=== PATIENT | female | born 1955 | race Caucasian/White ===

== ENCOUNTER → 2018-02-27 12:31 | Outpatient (CLI) | payer OTHER, SELFPAY ==
--- NOTE | 2018-02-27 | DI.US.S_ITS ---
PROCEDURE: US PELVIC COMPLETE INDICATIONS: POST MENOPAUSAL BLEEDING TECHNIQUE: Real-time scanning was performed of the pelvic organs, with image documentation. Additional endovaginal scanning was necessary due to incomplete visualization of the adnexal and endometrial structures by transabdominal scanning. COMPARISON: None. FINDINGS: Transabdominal scanning: Limited scanning through the kidneys shows no hydronephrosis. No pathologic free abdominal or pelvic fluid. Endovaginal scanning: Uterus: Uterus is normal in size at 3.4 x 3.7 x 5.3 cm. The endometrium measures 2.8 mm in combined thickness. There is a right anterior intramural fibroid measuring 15 x 16 x 16 mm. There is a left posterior subserosal fibroid measuring 14 x 19 x 20 mm. Ovaries: Ovaries appear normal measuring 6 x 8 x 12 mm right and 6 x 6 x 15 mm left. IMPRESSION: 1. Fibroid uterus with fibroids measuring 2 cm or smaller in size and not in submucosal locations. Normal endometrial thickness. No source of vaginal bleeding seen. 2. Normal atrophic ovaries Dictated by: Chau Bonner M.D. on 02/27/2018 at 14:19 Approved by: Chau Bonner M.D. on 02/27/2018 at 14:22
== END ==
PROVIDERS: Visit Provider Physician Assistant Medical
DX: D25.9 Leiomyoma of uterus, unspecified (principal)
CPT/HCPCS: 76830; 76856

== ENCOUNTER → 2021-09-12 12:33 | Outpatient (CLI) | payer BC, SELFPAY ==
--- NOTE | 2021-09-12 12:38 | DI.RAD.S_ITS ---
PROCEDURE: FL BARIUM SWALLOW W AIR COMPARISON: None. INDICATIONS: Epigastric pain FINDINGS: Esophagus follows a normal course. Esophageal contours are normal. Esophageal mucosa is normal in appearance with no mucosal mass, ulceration or irregularity. No hiatal hernia noted. Mild gastroesophageal reflux occurred without provocative maneuvers. There is minimal distal esophageal dysmotility. No esophageal stricture or diverticulum. 13 millimeter barium tablet readily passed from the oral cavity to the stomach. IMPRESSION: 1. Mild gastroesophageal reflux. 2. Minimal distal esophageal dysmotility. Dictated by: Reny Diego MD, PhD on 09/12/2021 at 16:22 Approved by: Reny Diego MD, PhD on 09/12/2021 at 16:24
== END ==
PROVIDERS: PCP Internal Medicine; Referring Provider Internal Medicine; Visit Provider Internal Medicine
DX: K22.4 Dyskinesia of esophagus (principal); K21.9 Gastro-esophageal reflux disease without esophagitis; R10.13 Epigastric pain
CPT/HCPCS: 74221

== ENCOUNTER 2022-01-29 07:42 | Day surgery (SDC) | payer BC, SELFPAY ==
--- NOTE | 2022-01-29 | PATH_ITS ---
[facility] Accession Number: [id number] . 01 Material submitted: . PART A: duodenum - DUODNEUM PART B: stomach - ANTRUM PART C: esophagus, E-G Junction - GEJ . 01 Diagnosis: A. Duodenum, Biopsy: Duodenal mucosa with no diagnostic abnormality. Negative for active inflammation, features of sprue, dysplasia, or malignancy. . B. Stomach, Antrum, Biopsy: Antral mucosa with mild chronic gastritis. Negative for Helicobacter by immunohistochemistry. Negative for intestinal metaplasia. Negative for dysplasia and malignancy. . C. Gastroesophageal Junction, Biopsy: Squamous epithelium with no diagnostic abnormality. Intraepithelial eosinophils are not increased. Negative for dysplasia and malignancy. MRV 02/02/2022 1310 Local . 01 Electronically signed: . Audelia Mcdaniel MD, Pathologist NPI- [id number] . 01 Gross description: . Part A: DUODNEUM: Received in formalin are 2 fragment(s) of marshall, soft tissue measuring 0.3 x 0.2 x 0.2 cm to 0.2 x 0.1 x 0.1 cm submitted entirely in 1 cassette(s) Part B: ANTRUM: Received in formalin is 1 fragment(s) of marshall, soft tissue measuring 0.3 x 0.1 x 0.1 cm submitted entirely in 1 cassette(s) Part C: GEJ: Received in formalin is 1 fragment(s) of marshall, soft tissue measuring 0.1 x 0.1 x 0.1 cm submitted entirely in 1 cassette(s) /CPE 01/30/2022 0832 Local . 01 Microscopic: . B. An immunohistochemical stain was performed to evaluate for Helicobacter organisms and is negative. The control stain showed appropriate reactivity. . * This test was developed and its performance characteristics determined by [employer]. It has not been cleared or approved by the U.[place]. Food and Drug Administration. The FDA has determined that such clearance or approval is not necessary. This test is used for clinical purposes. It should not be regarded as investigational or for research. . . . . . 01 Pathologist provided ICD-10: R13.12 . 01 CPT . 363475, 908935, 440030, R54291 Specimen Comment: A courtesy copy of this report has been sent to [phone] Performed at: [facility] [address] [place] [id number] MD Pilo Dunbar MD Phone: [phone]
[2022-01-29 08:06] LABS: COVID19 -Nasal RAPID Negative (Negative)
[2022-01-29 08:50] VITALS: BP 143/78; PULSE 59; RESP 15; TEMP 37.1; O2SAT 99
[2022-01-29] MEDS: SODIUM CHLORIDE 0.9% 1,000 ML 100 ML IV (08:59)
--- NOTE | 2022-01-29 09:09 | PM.HP.1 ---
History of Present Illness History of Present Illness Date Patient Seen: 01/29/22 Time Patient Seen: 09:09 Chief complaint: SDC Narrative: I reviewed my office note from December 05, 2021. No significant changes. Patient History Family & Social History Social History: household members spouse Tobacco & Substance use: Smoking Status Never smoker alcohol intake never Substance Use Type does not use Meds Home Medications and Allergies Home Medications Medication Instructions Recorded Confirmed Type metoprolol succinate 25 mg 25 mg PO BID 01/26/22 01/29/22 History tablet,extended release 24 hr simvastatin 10 mg tablet 10 mg PO BEDTIME 01/26/22 01/29/22 History Allergies Allergy/AdvReac Type Severity Reaction Status Date / Time No Known Drug Allergies Allergy Verified 01/29/22 08:51 Review of Systems Review of Systems ROS: Yes All systems reviewed with the patient and are negative except as otherwise documented Exam Vital Signs (past 8 hours): - 01/29/22 08:50 Temperature 98.7 F Pulse Rate 59 L Respiratory Rate 15 Blood Pressure 143/78 H Pulse Oximetry 99 Oxygen Delivery Method Room Air Const General: cooperative and comfortable Orientation: alert HENNC Head: normocephalic Ears: external ears normal Nose: external nose normal Face and sinus: normal facial exam Mouth: oral mucosae normal Eyes General: appearance normal, both eyes and all related structures Neck Neck: normal visual inspection Chest Chest: normal inspection of the chest Resp Effort & Inspection: normal respiratory effort Cardio Rate: regular rate GI Inspection: normal to inspection Skin General: no rashes or lesions noted and No jaundice Neuro General: patient alert and moves all extremities Cognition: normal cognition Speech: speech normal Extrem General: no pedal edema Psych Appearance: grossly normal Objective Labs Labs: Laboratory Results - last 24 hr 01/29/22 07:49 SARS-CoV-2 (PCR) Negative Assessment & Plan Assessment & Plan narrative: 66-year-old female with both oropharyngeal and esophageal dysphagia. Diagnostic EGD is pursued today. Time Spent With Patient Critical Care time: I spent a total of [] minutes of critical care time on this patient's care today; this time is exclusive of procedural time.
--- NOTE | 2022-01-29 09:10 | PM.PREOP ---
Pre-operative Note COVID-19 COVID-19 status: Negative Result date/Date tested (Pos, Neg/Pending): 01/29/22 Criteria for continued procedure: Possibility delay results in more complex future surgery or treatment Interval Note History & Physical reviewed/Exam performed by Physician: Yes Changes to H&P: No ASA Class (for procedural sedation): II
--- NOTE | 2022-01-29 09:53 | PM.OP.EGD ---
Operative Date/Time/Diagnoses Date of procedure: 01/29/22 Time of procedure: 09:53 Pre-op diagnosis: Dysphagia Post-op diagnosis: same Procedure & Clinicians Study performed: EGD with biopsies Same procedure as scheduled: Yes Indications: Dysphagia Surgeon: Ga Bridges Procedure Notes SCOAP/Timeout: Done Procedure in detail: After the risks and benefits were explained, written and verbal informed consent was obtained. The patient was brought into the procedure room and placed into the left lateral decubitus position. Please see nurse curtain fitter notes for sedation details. The scope was introduced into the mouth through the bite block and advanced under direct visualization to the 2nd portion of the duodenum. The scope was slowly withdrawn carefully examining the mucosa for any defects or lesions. Retroflexed views were accomplished in the stomach. The stomach was decompressed, the scope was then removed from the patient who tolerated the procedure well. Sedation minutes: 11 Complications: none Impression: 1. Duodenum: There was some subtle scant erosive change scattered in the 2nd portion. These areas were targeted for biopsy. Otherwise no significant pathology appreciated from the bulb through into the 2nd portion. 2. Stomach: No gastric outlet obstruction no ulcers no mass lesions no strictures. Mild diffuse erythema was appreciated in the antral region. This area was targeted for biopsy for exclusion of H pylori I. Retroflexed views of the LES were unremarkable. 3. Esophagus: The squamocolumnar junction correlated with the top of the gastric folds. GE junction was at approximately 44 cm from the incisors. No strictures no obvious rings. There was subtle inflammation noted at the Z-line. This area was targeted for a biopsy x1 for histologic characterization. The remainder of the esophagus was within normal limits. Endoscopic diagnosis 1. Subtle duodenal erosions 2. Mild gastropathy 3. Mild esophagitis at the Z-line Post-procedure Plan for aftercare: 1. Await histopathology. 2. Initiation of once daily 20 mg [id number] famotidine. 3. Speech pathology assessment for the oropharyngeal component of swallowing dysfunction. Disposition: PACU
[2022-01-29 09:57] VITALS: BP 105/58; PULSE 55; RESP 13; TEMP 36.2; O2SAT 98
[2022-01-29 10:01] VITALS: BP 108/65; PULSE 60; RESP 16; O2SAT 98
[2022-01-29 10:09] VITALS: BP 117/65; PULSE 51; RESP 16; O2SAT 99
[2022-01-29 10:19] VITALS: BP 120/70; PULSE 80; RESP 16; TEMP 36.9; O2SAT 98
== END 2022-01-29 10:31 | disposition home or self-care (01) ==
PROVIDERS: PCP Internal Medicine; Referring Provider Internal Medicine Gastroenterology; Visit Provider Internal Medicine Gastroenterology
PROC: 0DJ08ZZ Inspection of Upper Intestinal Tract, Via Natural or Artificial Opening Endoscopic (ICD-10-PCS; CPT 43235; principal; 2022-01-29 09:30)
DX: R13.10 Dysphagia, unspecified (principal); R05.3 Chronic cough; K31.9 Disease of stomach and duodenum, unspecified; R73.03 Prediabetes; K29.50 Unspecified chronic gastritis without bleeding
CPT/HCPCS: 43239; 87635; C9803; J2704

== ENCOUNTER 2023-02-24 18:21 | Inpatient (IN) | payer OTHER, SELFPAY ==
[2023-02-24] VITALS (15 sets, daily range): BP systolic 108–139; BP diastolic 64–86; PULSE 72–131; RESP 16–31; TEMP 36.2–37.2; O2SAT 96–98; BMI 21.7; BMI 21.8
--- NOTE | 2023-02-24 18:28 | DI.RAD.S_ITS ---
PROCEDURE: XR CHEST 1V INDICATIONS: chest pain TECHNIQUE: One view of the chest was acquired. COMPARISON: None. FINDINGS: Surgical changes and devices: None. Lungs and pleura: Patchy right basilar opacities which may represent atelectasis versus early developing airspace disease. No definite consolidation seen. No pneumothorax or pleural effusion. . Mediastinum: Mediastinal contours appear normal. Heart size is normal. Bones and chest wall: No suspicious bony lesions. Overlying soft tissues appear unremarkable. IMPRESSION: Patchy right basilar opacities which may represent atelectasis versus early airspace disease/pneumonia. Recommend follow up chest radiograph 4-6 weeks after treatment to document resolution of findings and/or return to baseline examination. Dictated by: Vikas Rogel M.D. on 02/24/2023 at 19:03 Approved by: Vikas Rogel M.D. on 02/24/2023 at 19:04
[2023-02-24 18:59] LABS: Add Manual Diff / Slide Review NO; Basophils Absolute Auto 0 /uL (0-100); Basophils Percent Auto 0.8 % (0-2); Eosinophils Absolute Auto 100 /uL (0-450); Eosinophils Percent Auto 3.4 % (2-4); Hematocrit 47.6 % (36-46); Hemoglobin 16.1 g/dL (12.0-16.0); Lymphocytes Absolute Auto 2000 /uL (1100-4500); Lymphocytes Percent Auto 44.4 % (25-40); Mean Corpuscular HGB Conc 33.8 % (30-36); Mean Corpuscular Volume 85.8 fL (80-100); Monocytes Absolute Auto 800 /uL (0-900); Neutrophils Absolute Auto 1500 /uL (1500-7000); Neutrophils Percent Auto 33.4 % (50-75); Platelet Count 199 X10^3/uL (150-400); Red Blood Cell Count 5.55 X10^6/uL (4.0-5.2); Red Cell Distribution Width 13.9 % (11.6-14.8); White Blood Cell Count 4.4 X10^3/uL (4.5-11.0)
[2023-02-24 19:12] LABS: INR 1.2 (0.9-1.3); Prothrombin Time 14.1 SECONDS (10.1-12.7)
[2023-02-24 19:15] LABS: PTT Partial Thromboplastin Tim 43 SECONDS (26-36)
[2023-02-24 19:17] LABS: Alanine Aminotransferase 26 IU/L (<35); Albumin 4.1 g/dL (3.5-5.0); Albumin Globulin Ratio 1.1 (1.0-2.8); Alkaline Phosphatase 81 U/L (38-126); Aspartate Aminotransferase 39 IU/L (14-36); BUN Creatinine Ratio 11.5 (6-22); Bilirubin Total 0.4 mg/dL (0.2-1.3); Blood Urea Nitrogen 16 mg/dL (7-17); Calcium 9.4 mg/dL (8.4-10.2); Carbon Dioxide 28 mmol/L (22-32); Chloride 100 mmol/L (98-107); Creatine Kinase 104 U/L (30-135); Estimated Glomerular Filt Rate 42 mL/min (>60); Globulin 3.8 g/dL (1.7-4.1); Glucose 122 mg/dL (80-110); HEMOLYSIS 17 (0-50); Lipase 58 U/L (23-300); Potassium 4.3 mmol/L (3.4-5.1); Sodium 136 mmol/L (137-145); Total Protein 7.9 g/dL (6.3-8.2)
[2023-02-24 19:35] LABS: Troponin I 0.691 ng/mL (0.01-0.034)
--- NOTE | 2023-02-24 19:42 | ED_ITS ---
HPI - Arrhythmia/Palpitations General Chief Complaint: Arrhythmia/Palpitations Stated Complaint: High heartrate, says NATASHA de souza Time Seen by Provider: 02/24/23 18:41 History of Present Illness HPI narrative: 67-year-old woman with a history of hypertension, hyperlipidemia paroxysmal atri al fibrillation last episode approximately 5 years ago currently anticoagulated on Pradaxa who comes in complaining of persistent cough and atrial fibrillation. She notes that she is had a cough with upper respiratory type symptoms since February 20. At about 430 in the afternoon on February 22 she noted that she went into atrial fibrillation. She went to would be emergency department and was evaluated at that time. It sounds like she was given multiple medications in her heart rate was lowered and it was determined that it was safe for her to be discharged home. Was not determined that she had any type of bacterial infection and antibiotics were not given. She has been on metoprolol for a number of years and was told to continue this. She was instructed that if her systolic blood pressure was lower than 110 she should not take the metoprolol. This morning she noticed that her systolic blood pressure was 108 and she did not take her metoprolol. She can feel the palpitations but she is having no actual chest pain, orthopnea or exertional dyspnea she notes that she has been increasingly weak over the last couple of days and her actually has to help her to the bathroom due to global weakness. She is noted no headaches, no recent fevers in the last 48 hours. She is not vomiting, there is no lower extremity edema. She comes in today for further evaluation Related Data Home Medications Medication Instructions Recorded Confirmed metoprolol succinate 25 mg 50 mg PO BID 01/26/22 02/25/23 tablet,extended release 24 hr simvastatin 10 mg tablet 20 mg PO BEDTIME 01/26/22 02/25/23 ascorbic acid (vitamin C) 1,000 mg 1 g PO DAILY 02/25/23 02/25/23 capsule azelastine 0.05 % eye drops 1 drp ophthalmic (eye) DAILY PRN 02/25/23 02/25/23 Allergy Symptoms benzonatate 100 mg capsule 100 mg PO TID PRN Cough 02/25/23 02/25/23 calcium 187.5 mg capsule 1 mg PO 02/25/23 coQ10 (ubiquinol) 200 mg capsule 200 mg PO DAILY 02/25/23 02/25/23 codeine 10 mg-guaifenesin 100 mg/5 5 ml PO Q8H PRN Cough 02/25/23 02/25/23 mL oral liquid dabigatran etexilate 150 mg 150 mg PO BID 02/25/23 02/25/23 capsule (Pradaxa) krill oil 500 mg capsule 500 mg PO DAILY 02/25/23 02/25/23 lutein 20 mg-zeaxanthin 4 mg 1 cap PO DAILY 02/25/23 02/25/23 capsule methylsulfonylmethane 1,000 1,000 mg PO DAILY 02/25/23 02/25/23 mg/gram (scoop) oral powder potassium citrate 99 mg capsule 99 mg PO DAILY 02/25/23 02/25/23 vitamin B complex 1 cap PO Q2D 02/25/23 02/25/23 vitamin E 400 unit tablet 400 unit PO DAILY 02/25/23 02/25/23 vitamin K2 100 mcg capsule 100 mcg PO DAILY 02/25/23 02/25/23 white petrolatum-mineral oil 94 EYE-BOTH BEDTIME 02/25/23 %-3 % eye ointment Allergies Allergy/AdvReac Type Severity Reaction Status Date / Time No Known Drug Allergies Allergy Verified 01/29/22 08:51 Review of Systems Review of Systems Narrative: Pertinent positive and negative findings as per HPI Patient History Medical History (Updated 02/25/23 @ 00:12 by TAMAR Matson-IMANI) Essential hypertension Hyperlipidemia Paroxysmal atrial fibrillation Surgical History (Updated 02/25/23 @ 00:12 by TAMAR Matson-IMANI) History of tubal ligation Family History (Updated 02/25/23 @ 00:13 by TAMAR Matson-IMANI) Father Heart attack Mother Cancer Social History household members: spouse Smoking Status: Never smoker alcohol intake: former Smoking Status: Never smoker Substance Use Type: does not use Exam Initial Vital Signs Initial Vital Signs: Vital Signs Temperature 97.2 F L 02/24/23 18:24 Pulse Rate 121 H 02/24/23 18:24 Respiratory Rate 16 02/24/23 18:24 Blood Pressure 132/76 02/24/23 18:24 Pulse Oximetry 97 02/24/23 18:24 Oxygen Delivery Method Room Air 02/24/23 18:24 General: Fatigued appearing but in no acute distress. Able to give a complete and coherent history. Well-nourished well-developed HEENT: Moist mucous membranes, normal sclera with reactive pupils, Neck: No JVD, supple Respiratory: Lungs are clear to auscultation, no wheezing no rales no rhonchi. Full and symmetrical air movement Cardiac: Rapid and irregular but no murmurs no bruits Abdomen: Soft, nontender, good bowel tones, no flank pain Skin: Warm and dry, no rashes Neurologic: Grossly neurologically intact with no obvious asymmetries or abnormalities Extremities: No trauma, well perfused, no lower extremity edema Psych: Cooperative, appropriate insight and affect Course Orders Ordered: ED Orders 02/24/23 22:17 EKG-12 Lead Stat 02/24/23 22:28 PTT Partial Thromboplastin Garfield Q6H 02/24/23 22:34 RT Consult Eval and Treat PRN 02/24/23 22:35 Sputum Culture Urgent 02/24/23 22:39 EC echo doppler complete Urgent Education, smoking cessation ONGOING 02/24/23 22:45 Consult to Dietitian, Adult Routine Consult to Occupational Therapy Evaluate & Treat Consult to Physical Therapy Evaluate & Treat 02/25/23 04:13 Basic Metabolic Panel DAILY Complete Blood Count AUTO DIFF DAILY Lipid Panel Routine Magnesium Routine PTT Partial Thromboplastin [place]field Q6H 02/25/23 10:15 PTT Partial Thromboplastin [place]field Q6H 02/25/23 16:15 PTT Partial Thromboplastin [place]field Q6H 02/26/23 05:00 Basic Metabolic Panel DAILY Complete Blood Count AUTO DIFF DAILY 02/27/23 05:00 Basic Metabolic Panel DAILY Complete Blood Count AUTO DIFF DAILY Acetaminophen (Acetaminophen 325 Mg Tablet) 650 mg PO Q6H PRN PRN Reason: Fever/Mild Pain (1-3) Hydrocodone Bitart/Acetaminophen (Hydrocodone/Acet 5/325 Tablet) 1 tab PO Q4H PRN PRN Reason: Pain, Moderate (4-10) Al Hydrox/Mg Hydrox/Simethicone (Mag Hydrox/Alum/Simeth 30 Ml Udc) 30 ml PO Q6HR PRN PRN Reason: Dyspepsia Amiodarone HCl (Amiodarone 200 Mg Tablet) 200 mg PO BIDWM ANTONY Stop: 03/04/23 07:59 Atorvastatin Calcium (Atorvastatin 20 Mg Tablet) 10 mg PO BEDTIME ANTONY Benzonatate (Benzonatate 100 Mg Capsule) 100 mg PO TID PRN PRN Reason: Cough Last Admin: 02/25/23 00:52 Dose: 100 mg Documented By: DAVE Calcium Carbonate (Calcium Carbonate 500 Mg Tab) 1,000 mg PO Q4HR PRN PRN Reason: Dyspepsia Guaifenesin/Codeine Phosphate (Codeine/Guaifenesin Liquid 5ml Udc) 5 ml PO Q6H PRN PRN Reason: Cough Last Admin: 02/25/23 00:52 Dose: 5 ml Documented By: DAVE Heparin Sodium/Dextrose (Heparin Drip) 25,000 unit in 500 mls @ 16.003 mls/hr IV CONT ANTONY; Protocol Last Admin: 02/24/23 22:17 Dose: 12 units/kg/hr, 16.003 mls/hr Documented By: Co-signed By: EMMA Sodium Chloride (Normal Saline 0.9%) 1,000 mls @ 80 mls/hr IV CONT ANTONY Last Admin: 02/24/23 23:53 Dose: 80 mls/hr Documented By: DAVE Ceftriaxone Sodium 1,000 mg/ (Sodium Chloride) 100 mls @ 200 mls/hr IV Q24H ANTONY Naloxone HCl (Naloxone 0.4 Mg/Ml Vial) 0.2 mg IV Q2MIN PRN PRN Reason: Opiate Reversal Discontinued Medications Heparin Sodium (Porcine) (Heparin 5,000 Unit/Ml Vial) 4,000 unit IV NOW ONE Stop: 02/24/23 22:04 Last Admin: 02/24/23 22:22 Dose: 4,000 unit Documented By: Amiodarone HCl/Dextrose (Nexterone) 150 mg in 100 mls @ 600 mls/hr IV NOW ONE; Protocol Stop: 02/24/23 20:06 Last Infusion: 02/24/23 21:00 Dose: 0 mls/hr Documented By: Admin: 02/24/23 20:41 Dose: 600 mls/hr Documented By: Sodium Chloride (Normal Saline 0.9%) 1,000 mls @ 1,000 mls/hr IV BOLUS ONE Stop: 02/24/23 20:56 Last Infusion: 02/24/23 21:08 Dose: 0 mls/hr Documented By: Admin: 02/24/23 20:27 Dose: 1,000 mls/hr Documented By: Sodium Chloride (Normal Saline 0.9%) 1,000 mls @ 1,000 mls/hr IV BOLUS ONE Stop: 02/24/23 22:26 Last Infusion: 02/24/23 22:11 Dose: 0 mls/hr Documented By: Admin: 02/24/23 21:28 Dose: 1,000 mls/hr Documented By: EMMA Ceftriaxone Sodium 2,000 mg/ (Sodium Chloride) 100 mls @ 200 mls/hr IV NOW ONE Stop: 02/24/23 22:14 Last Admin: 02/25/23 01:20 Dose: Not Given Documented By: DAVE Azithromycin 500 mg/ Dextrose 250 mls @ 250 mls/hr IV NOW ONE Stop: 02/24/23 22:14 Last Admin: 02/25/23 01:20 Dose: Not Given Documented By: DAVE Levofloxacin (Levaquin) 750 mg in 150 mls @ 100 mls/hr IV Q24H ANTONY Stop: 03/02/23 21:59 Vital Signs Vital signs: Vital Signs - 8 hr 02/24/23 18:24 02/24/23 18:38 02/24/23 19:00 Temperature 97.2 F L Pulse Rate 121 H 121 H Respiratory Rate 16 26 H Blood Pressure 132/76 108/74 Pulse Oximetry 97 98 Oxygen Delivery Method Room Air 02/24/23 19:00 02/24/23 19:30 02/24/23 19:30 Temperature Pulse Rate 123 H 119 H Respiratory Rate 23 Blood Pressure 139/86 Pulse Oximetry 96 97 Oxygen Delivery Method 02/24/23 20:00 02/24/23 20:00 02/24/23 20:30 Temperature Pulse Rate 120 H Respiratory Rate 26 H Blood Pressure 110/78 119/83 Pulse Oximetry 97 Oxygen Delivery Method 02/24/23 20:30 02/24/23 21:05 02/24/23 20:56 Temperature Pulse Rate 131 H 72 120 H Respiratory Rate 24 18 Blood Pressure Pulse Oximetry 96 96 98 Oxygen Delivery Method Room Air 02/24/23 20:56 02/24/23 21:00 02/24/23 21:01 Temperature Pulse Rate 123 H Respiratory Rate 28 H Blood Pressure 133/75 137/85 Pulse Oximetry 97 Oxygen Delivery Method 02/24/23 21:01 02/24/23 21:30 02/24/23 21:30 Temperature Pulse Rate 124 H 75 Respiratory Rate 23 23 Blood Pressure 123/79 Pulse Oximetry 97 97 Oxygen Delivery Method 02/24/23 22:00 02/24/23 22:00 Temperature Pulse Rate 77 Respiratory Rate Blood Pressure 120/75 Pulse Oximetry 98 Oxygen Delivery Method MDM - Arrhythmia/Palpitations Lab Data 02/25/23 04:13 02/25/23 04:13 Labs: Lab Results 02/24/23 02/24/23 02/24/23 Range/Units 18:45 18:45 18:45 WBC 4.4 L (4.5-11.0) X10^3/uL RBC 5.55 H (4.0-5.2) X10^6/uL Hgb 16.1 H (12.0-16.0) g/dL Hct 47.6 H (36-46) % MCV 85.8 (80-100) fL MCH 29.0 (26-34) PG MCHC 33.8 (30-36) % RDW 13.9 (11.6-14.8) % Plt Count 199 (150-400) X10^3/uL Neut % (Auto) 33.4 L (50-75) % Lymph % (Auto) 44.4 H (25-40) % Ferry % (Auto) 18.0 H (3-14) % Eos % (Auto) 3.4 (2-4) % Baso % (Auto) 0.8 (0-2) % Neut # (Auto) 1500 (8020-1544) /uL Lymph # (Auto) 2000 (6250-3824) /uL Ferry # (Auto) 800 (0-900) /uL Eos # (Auto) 100 (0-450) /uL Baso # (Auto) 0 (0-100) /uL PT 14.1 H (10.1-12.7) SECONDS INR 1.2 (0.9-1.3) APTT 43 H (26-36) SECONDS Sodium 136 L (137-145) mmol/L Potassium 4.3 (3.4-5.1) mmol/L Chloride 100 (98-107) mmol/L Carbon Dioxide 28 (22-32) mmol/L BUN 16 (7-17) mg/dL Creatinine 1.39 H (0.52-1.04) mg/dL Estimated GFR 42 L (>60) mL/min BUN/Creatinine Ratio 11.5 (6-22) Glucose 122 H (80-110) mg/dL Lactate (0.7-2.1) mmol/L Calcium 9.4 (8.4-10.2) mg/dL Magnesium 2.0 (1.6-2.3) mg/dL Total Bilirubin 0.4 (0.2-1.3) mg/dL AST 39 H (14-36) IU/L ALT 26 (<35) IU/L Alkaline Phosphatase 81 (38-126) U/L Total Creatine Kinase 104 (30-135) U/L CK-MB (CK-2) TNP CK-MB (CK-2) Rel Index TNP Troponin I 0.691 H* (0.01-0.034) ng/mL C-Reactive Protein (<1.0) mg/dL NT-Pro-B Natriuret Pep (<125) pg/mL Total Protein 7.9 (6.3-8.2) g/dL Albumin 4.1 (3.5-5.0) g/dL Globulin 3.8 (1.7-4.1) g/dL Albumin/Globulin Ratio 1.1 (1.0-2.8) Lipase 58 (23-300) U/L Procalcitonin (<0.5) ng/mL TSH (0.47-4.68) uIU/mL Free T4 (0.78-2.19) ng/dL Urine Color Urine Appearance Urine pH (4.5-8.0) Ur Specific Wilsey (1.000-1.035) Urine Protein (Negative) Urine Glucose (UA) (Negative) g/dL Urine Ketones (NEGATIVE) Urine Occult Blood (Negative) Urine Nitrate (Negative) Urine Bilirubin (NEGATIVE) Urine Urobilinogen (0.2) E.U./dL Ur Leukocyte Esterase (NEGATIVE) Urine RBC (0-5/HPF) Urine WBC (0-5/HPF) Ur Squamous Epith Cells (0-5/HPF) Urine Bacteria (None) Ur Culture Indicated? Chlamy pneumoniae PCR (Not Detect) Adenovirus (PCR) (Not Detect) B. pertussis DNA (PCR) (Not Detecte) B.parapertussis DNA PCR (Not Detecte) Coronavirus OC43 (PCR) (Not Detect) Coronavirus HKU1 (PCR) (Not Detect) Coronavirus 229E (PCR) (Not Detect) SARS-CoV-2 (PCR) (Not Detecte) Coronavirus NL63 (PCR) (Not Detect) Human Metapneumovir PCR (Not Detect) Influenza Type A (PCR) (Not Detect) Influenza Type B (PCR) (Not Detect) M. pneumoniae (PCR) (Not Detect) Parainfluenza 1 (PCR) (Not Detect) Parainfluenza 2 (PCR) (Not Detect) Parainfluenza 3 (PCR) (Not Detect) Parainfluenza 4 (PCR) (Not Detect) RSV (PCR) (Not Detect) Entero/Rhino (PCR) (Not Detect) 02/24/23 02/24/23 02/24/23 Range/Units 18:45 18:45 18:45 WBC (4.5-11.0) X10^3/uL RBC (4.0-5.2) X10^6/uL Hgb (12.0-16.0) g/dL Hct (36-46) % MCV (80-100) fL MCH (26-34) PG MCHC (30-36) % RDW (11.6-14.8) % Plt Count (150-400) X10^3/uL Neut % (Auto) (50-75) % Lymph % (Auto) (25-40) % Ferry % (Auto) (3-14) % Eos % (Auto) (2-4) % Baso % (Auto) (0-2) % Neut # (Auto) (2222-6714) /uL Lymph # (Auto) (4856-1805) /uL Ferry # (Auto) (0-900) /uL Eos # (Auto) (0-450) /uL Baso # (Auto) (0-100) /uL PT (10.1-12.7) SECONDS INR (0.9-1.3) APTT (26-36) SECONDS Sodium (137-145) mmol/L Potassium (3.4-5.1) mmol/L Chloride (98-107) mmol/L Carbon Dioxide (22-32) mmol/L BUN (7-17) mg/dL Creatinine (0.52-1.04) mg/dL Estimated GFR (>60) mL/min BUN/Creatinine Ratio (6-22) Glucose (80-110) mg/dL Lactate 1.5 (0.7-2.1) mmol/L Calcium (8.4-10.2) mg/dL Magnesium (1.6-2.3) mg/dL Total Bilirubin (0.2-1.3) mg/dL AST (14-36) IU/L ALT (<35) IU/L Alkaline Phosphatase (38-126) U/L Total Creatine Kinase (30-135) U/L CK-MB (CK-2) CK-MB (CK-2) Rel Index Troponin I (0.01-0.034) ng/mL C-Reactive Protein (<1.0) mg/dL NT-Pro-B Natriuret Pep (<125) pg/mL Total Protein (6.3-8.2) g/dL Albumin (3.5-5.0) g/dL Globulin (1.7-4.1) g/dL Albumin/Globulin Ratio (1.0-2.8) Lipase (23-300) U/L Procalcitonin 0.08 (<0.5) ng/mL TSH 2.99 (0.47-4.68) uIU/mL Free T4 1.59 (0.78-2.19) ng/dL Urine Color Urine Appearance Urine pH (4.5-8.0) Ur Specific Wilsey (1.000-1.035) Urine Protein (Negative) Urine Glucose (UA) (Negative) g/dL Urine Ketones (NEGATIVE) Urine Occult Blood (Negative) Urine Nitrate (Negative) Urine Bilirubin (NEGATIVE) Urine Urobilinogen (0.2) E.U./dL Ur Leukocyte Esterase (NEGATIVE) Urine RBC (0-5/HPF) Urine WBC (0-5/HPF) Ur Squamous Epith Cells (0-5/HPF) Urine Bacteria (None) Ur Culture Indicated? Chlamy pneumoniae PCR (Not Detect) Adenovirus (PCR) (Not Detect) B. pertussis DNA (PCR) (Not Detecte) B.parapertussis DNA PCR (Not Detecte) Coronavirus OC43 (PCR) (Not Detect) Coronavirus HKU1 (PCR) (Not Detect) Coronavirus 229E (PCR) (Not Detect) SARS-CoV-2 (PCR) (Not Detecte) Coronavirus NL63 (PCR) (Not Detect) Human Metapneumovir PCR (Not Detect) Influenza Type A (PCR) (Not Detect) Influenza Type B (PCR) (Not Detect) M. pneumoniae (PCR) (Not Detect) Parainfluenza 1 (PCR) (Not Detect) Parainfluenza 2 (PCR) (Not Detect) Parainfluenza 3 (PCR) (Not Detect) Parainfluenza 4 (PCR) (Not Detect) RSV (PCR) (Not Detect) Entero/Rhino (PCR) (Not Detect) 02/24/23 02/24/23 02/24/23 Range/Units 18:45 20:38 20:51 WBC (4.5-11.0) X10^3/uL RBC (4.0-5.2) X10^6/uL Hgb (12.0-16.0) g/dL Hct (36-46) % MCV (80-100) fL MCH (26-34) PG MCHC (30-36) % RDW (11.6-14.8) % Plt Count (150-400) X10^3/uL Neut % (Auto) (50-75) % Lymph % (Auto) (25-40) % Ferry % (Auto) (3-14) % Eos % (Auto) (2-4) % Baso % (Auto) (0-2) % Neut # (Auto) (6251-6809) /uL Lymph # (Auto) (3183-6977) /uL Ferry # (Auto) (0-900) /uL Eos # (Auto) (0-450) /uL Baso # (Auto) (0-100) /uL PT (10.1-12.7) SECONDS INR (0.9-1.3) APTT (26-36) SECONDS Sodium (137-145) mmol/L Potassium (3.4-5.1) mmol/L Chloride (98-107) mmol/L Carbon Dioxide (22-32) mmol/L BUN (7-17) mg/dL Creatinine (0.52-1.04) mg/dL Estimated GFR (>60) mL/min BUN/Creatinine Ratio (6-22) Glucose (80-110) mg/dL Lactate (0.7-2.1) mmol/L Calcium (8.4-10.2) mg/dL Magnesium (1.6-2.3) mg/dL Total Bilirubin (0.2-1.3) mg/dL AST (14-36) IU/L ALT (<35) IU/L Alkaline Phosphatase (38-126) U/L Total Creatine Kinase (30-135) U/L CK-MB (CK-2) CK-MB (CK-2) Rel Index Troponin I 0.802 H* (0.01-0.034) ng/mL C-Reactive Protein (<1.0) mg/dL NT-Pro-B Natriuret Pep 2060 H (<125) pg/mL Total Protein (6.3-8.2) g/dL Albumin (3.5-5.0) g/dL Globulin (1.7-4.1) g/dL Albumin/Globulin Ratio (1.0-2.8) Lipase (23-300) U/L Procalcitonin (<0.5) ng/mL TSH (0.47-4.68) uIU/mL Free T4 (0.78-2.19) ng/dL Urine Color Yellow Urine Appearance Clear Urine pH 5.5 (4.5-8.0) Ur Specific Wilsey <=1.005 (1.000-1.035) Urine Protein Negative (Negative) Urine Glucose (UA) Negative (Negative) g/dL Urine Ketones Negative (NEGATIVE) Urine Occult Blood 1+ H (Negative) Urine Nitrate Negative (Negative) Urine Bilirubin Negative (NEGATIVE) Urine Urobilinogen 0.2 (0.2) E.U./dL Ur Leukocyte Esterase Negative (NEGATIVE) Urine RBC None seen (0-5/HPF) Urine WBC None seen (0-5/HPF) Ur Squamous Epith Cells None seen (0-5/HPF) Urine Bacteria None seen (None) Ur Culture Indicated? Cult not indicated Chlamy pneumoniae PCR (Not Detect) Adenovirus (PCR) (Not Detect) B. pertussis DNA (PCR) (Not Detecte) B.parapertussis DNA PCR (Not Detecte) Coronavirus OC43 (PCR) (Not Detect) Coronavirus HKU1 (PCR) (Not Detect) Coronavirus 229E (PCR) (Not Detect) SARS-CoV-2 (PCR) (Not Detecte) Coronavirus NL63 (PCR) (Not Detect) Human Metapneumovir PCR (Not Detect) Influenza Type A (PCR) (Not Detect) Influenza Type B (PCR) (Not Detect) M. pneumoniae (PCR) (Not Detect) Parainfluenza 1 (PCR) (Not Detect) Parainfluenza 2 (PCR) (Not Detect) Parainfluenza 3 (PCR) (Not Detect) Parainfluenza 4 (PCR) (Not Detect) RSV (PCR) (Not Detect) Entero/Rhino (PCR) (Not Detect) 02/24/23 02/24/23 02/24/23 Range/Units 21:25 22:06 22:28 WBC (4.5-11.0) X10^3/uL RBC (4.0-5.2) X10^6/uL Hgb (12.0-16.0) g/dL Hct (36-46) % MCV (80-100) fL MCH (26-34) PG MCHC (30-36) % RDW (11.6-14.8) % Plt Count (150-400) X10^3/uL Neut % (Auto) (50-75) % Lymph % (Auto) (25-40) % Ferry % (Auto) (3-14) % Eos % (Auto) (2-4) % Baso % (Auto) (0-2) % Neut # (Auto) (4136-4297) /uL Lymph # (Auto) (6475-3979) /uL Ferry # (Auto) (0-900) /uL Eos # (Auto) (0-450) /uL Baso # (Auto) (0-100) /uL PT (10.1-12.7) SECONDS INR (0.9-1.3) APTT 85 H* D (26-36) SECONDS Sodium (137-145) mmol/L Potassium (3.4-5.1) mmol/L Chloride (98-107) mmol/L Carbon Dioxide (22-32) mmol/L BUN (7-17) mg/dL Creatinine (0.52-1.04) mg/dL Estimated GFR (>60) mL/min BUN/Creatinine Ratio (6-22) Glucose (80-110) mg/dL Lactate (0.7-2.1) mmol/L Calcium (8.4-10.2) mg/dL Magnesium (1.6-2.3) mg/dL Total Bilirubin (0.2-1.3) mg/dL AST (14-36) IU/L ALT (<35) IU/L Alkaline Phosphatase (38-126) U/L Total Creatine Kinase (30-135) U/L CK-MB (CK-2) CK-MB (CK-2) Rel Index Troponin I (0.01-0.034) ng/mL C-Reactive Protein 0.6 (<1.0) mg/dL NT-Pro-B Natriuret Pep (<125) pg/mL Total Protein (6.3-8.2) g/dL Albumin (3.5-5.0) g/dL Globulin (1.7-4.1) g/dL Albumin/Globulin Ratio (1.0-2.8) Lipase (23-300) U/L Procalcitonin (<0.5) ng/mL TSH (0.47-4.68) uIU/mL Free T4 (0.78-2.19) ng/dL Urine Color Urine Appearance Urine pH (4.5-8.0) Ur Specific Wilsey (1.000-1.035) Urine Protein (Negative) Urine Glucose (UA) (Negative) g/dL Urine Ketones (NEGATIVE) Urine Occult Blood (Negative) Urine Nitrate (Negative) Urine Bilirubin (NEGATIVE) Urine Urobilinogen (0.2) E.U./dL Ur Leukocyte Esterase (NEGATIVE) Urine RBC (0-5/HPF) Urine WBC (0-5/HPF) Ur Squamous Epith Cells (0-5/HPF) Urine Bacteria (None) Ur Culture Indicated? Chlamy pneumoniae PCR Not detected (Not Detect) Adenovirus (PCR) Not detected (Not Detect) B. pertussis DNA (PCR) Not detected (Not Detecte) B.parapertussis DNA PCR Not detected (Not Detecte) Coronavirus OC43 (PCR) Not detected (Not Detect) Coronavirus HKU1 (PCR) Not detected (Not Detect) Coronavirus 229E (PCR) Not detected (Not Detect) SARS-CoV-2 (PCR) Not detected (Not Detecte) Coronavirus NL63 (PCR) Not detected (Not Detect) Human Metapneumovir PCR Not detected (Not Detect) Influenza Type A (PCR) Not detected (Not Detect) Influenza Type B (PCR) Not detected (Not Detect) M. pneumoniae (PCR) Not detected (Not Detect) Parainfluenza 1 (PCR) Not detected (Not Detect) Parainfluenza 2 (PCR) Not detected (Not Detect) Parainfluenza 3 (PCR) Not detected (Not Detect) Parainfluenza 4 (PCR) Not detected (Not Detect) RSV (PCR) Not detected (Not Detect) Entero/Rhino (PCR) Not detected (Not Detect) Urine Dip Bedside Urine Glucose Negative Bedside Urine Bilirubin - Negative Bedside Urine Ketone - Negative Urine Specific Wilsey 1.010 Bedside Urine Occult Blood + Bedside Urine pH 6.0 Bedside Urine Protein - Negative Bedside Urine Urobilinogen - Negative Bedside Urine Nitrite - Negative Bedside Urine Leukocytes - Negative Esterase MDM Narrative Medical decision making narrative: CC: Atrial flutter, this is an acute complication with uncertain prognosis Complicating co-morbidities: Upper respiratory infection with significant cough Data collected from: patient, Medical records reviewed: Endoscopy notes for dysphasia from January of 2022 are reviewed Differential considered: Upper respiratory infection, pneumonia, atrial flutter, acute coronary syndrome, cardiomyopathy Exam documented above, pertinent findings include: Patient is in atrial flutter without signs of congestive heart failure or sepsis Lab Test results independently reviewed as above. Pertinent findings: CBC has a white count at 4.4 H&H is 16.1 and 47.6. Neutrophils are low lymphocytes and monocytes are relatively elevated suggesting mild dehydration with a viral syndrome PT is 14.1 and PTT is 43 Chemistries show slightly elevated creatinine at 1.39, minimal elevation of AST at 39. Remainder of chemistries are reassuring Troponin is elevated at 0.691 Lactic acid is 1.5 Urine is unremarkable Independently reviewed EKG Atrial flutter at a rate of 122 sees a 2-[address] depression in leads V3 through V6 without ST elevation appreciated Imaging studies independently reviewed: Chest x-ray shows patchy right basilar opacities no pneumothorax, no effusions no congestive heart failure. Atelectasis versus airspace disease to explain the opacities. Consultations: 755pm Dr Todd. Feels that cardioversion in this setting would be the most appropriate option. Suggested 150mg amiodorone bolus then start 200mg BID x 7 days and then decrease to daily. Treatments: Given the slight bump in creatinine and hemo concentration with no evidence of congestive heart failure, L fluid is given. Given the persistent coughing and right lower lobe infiltrate atypical pneumonia is entertained and ceftriaxone and azithromycin are administered. Without fever, possibility of sepsis is low however lactic acid and blood cultures will be obtained prior to antibiotics. Blood pressure currently is on the lower side so will hold off on any rate control medications until we have rehydrated her a bit. Will review with Cardiology. At this point she is still on her Pradaxa not having any chest pain does have an elevated troponin and question of need for heparin is raised. Re-evaluations: 8pm at this point I believe most likely explanation is bacterial/viral pneumonia that caused the a flutter that has caused a rate-related bump in troponin that is not anginal at this time. Will do the amiodarone boluses recommended by Cardiology, collect additional labs, begin antibiotics and plan for cardiove rsion with propofol for sedation. 915pm conversion to sinus rhythm at a rate of 72 with fluids and amiodarone 10pm 2nd troponin returns increased. Will go ahead and add heparin at this time. I suspect that this is still rate related however will continue heparin until troponin is trending down and echo has been done. Discussion: 67-year-old woman with cough and what was likely an upper respiratory infection for about a week, went into atrial flutter 2 days ago comes in today with elevated troponin no chest pain no signs of congestive heart failure and chest x-ray suggesting a right lower lobe pneumonia. In consultation with Cardiology she was giving IV amiodarone and did spontaneously convert. She has been continuously taking her Pradaxa. Troponin was elevated and increasing so he leticia was started. There is no signs of sepsis but with the persistent cough and right lower lobe infiltrate on the chest x-ray ceftriaxone and azithromycin or started for community-acquired pneumonia. Respiratory panel is currently pending. Cardiology recommendations regarding continued amiodarone listed above and include 200 mg b.i.d. for 7 days then continuing at 100 today until further outpatient evaluation. All of this is reviewed with the patient. Discussed with admitting hospital service and she will be transferred to the floor. Critical Care Time Critical Care Time Critical Care Time: Yes Total Critical Care Time: 37 Attestation: Critical care time is separate from other billable procedures. There is a high probability of a significant, sudden or life-threatening deterioration that requires my full and direct attention, intervention and personal management. This critical care time includes consultation with family and other consulting doctors, review of records, and interpretation of data from labs, EKGs and imaging as well as managements of atrial flutter, pneumonia, NSTEMI Discharge Plan Departure Patient Disposition: Admitted As Inpatient Clinical Impression: Non-ST elevation [place] (NSTEMI) Atrial flutter Qualifiers: Atrial flutter type: typical Qualified Code(s): I48.3 - Typical atrial flutter Pneumonia Qualifiers: Pneumonia type: due to unspecified organism Admit Date/Time: 02/24/23 22:45 Admit Provider: Eliana Wilkes
[2023-02-24 20:17] LABS: Lactate (Lactic Acid) 1.5 mmol/L (0.7-2.1)
[2023-02-24] MEDS: SODIUM CHLORIDE 0.9% 1,000 ML 1000 ML IV ×2 (20:27→21:28)
[2023-02-24] MEDS: AMIODARONE 150 MG/100 ML PIGGYBACK 600 MG IV (20:41)
[2023-02-24 20:55] LABS: Appearance Urine UA CLEAR; Bilirubin Urine UA NEGATIVE (NEGATIVE); Color Urine UA YELLOW; Glucose Urine UA NEGATIVE (Negative); Ketones Urine UA NEGATIVE (NEGATIVE); Leukocyte Esterase Urine UA NEGATIVE (NEGATIVE); Nitrite Urine UA NEGATIVE (Negative); Occult Blood Urine UA 1+ (Negative); Protein Urine UA NEGATIVE (Negative); Specific Gravity Urine UA <=1.005 (1.000-1.035); Urobilinogen Urine UA 0.2 E.U./dL (0.2)
[2023-02-24 20:56] LABS: pH Urine UA 5.5 (4.5-8.0)
[2023-02-24 21:02] LABS: Bacteria Urine None Seen; Culture Indicated Urine Cult Not Indicated; RBC Urine None Seen (0-5/HPF); Squamous Epithelial Cell Urine None Seen (0-5/HPF); WBC Urine None Seen (0-5/HPF)
--- NOTE | 2023-02-24 21:13 | PC.NURSE ---
2105: Pt converted to normal sinus rhythm, HR 74
[2023-02-24 21:44] LABS: Troponin I 0.802 ng/mL (0.01-0.034)
[2023-02-24] MEDS: HEPARIN DRIP 25,000 UNIT/500 ML IV.SOLN 16.003 UNIT IV (22:17)
[2023-02-24] MEDS: HEPARIN 5,000 UNIT/ML VIAL 4000 UNIT IV (22:22)
--- NOTE | 2023-02-24 22:39 | DI.ECHO.S_ITS ---
[facility]---------+ [facility] +---------+ : : [address] : : : : [id number] : : : : Phone: [phone] Echocardiogram Report + + :Name: KEKE AIKEN Study Date: 02/25/2023 Height: 69 in : :[facility] ReadingLocation: Weight: 147 lb : : Gender: Female BSA: 1.8 m2 : :: 1955 Age: 67 yrs BP: 110/58 mmHg: :Reason For Study: AFIB WITH RVR : :Ordering Physician: MIRIAM, : :ASTON Performed By: Alba Gunter : :Referring: ASTON PINEDA : + + Interpretation Summary 1) Normal left ventricular thickness, size, wall motion, and systolic function (EF 55-60%). 2) Normal right ventricular size and function. 3) No significant valvular abnormalities. 4) No prior Echo available for comparison. Procedure: A two-dimensional transthoracic echocardiogram with color flow and Doppler was performed. The study quality was technically adequate. There is no prior echocardiogram noted for this patient. The patient was in sinus rhythm with heart rates between 64-78 bpm during the exam. Left Ventricle: The left ventricle is normal in size and wall thickness. The ejection fraction is estimated to be 55-60%. Left ventricular systolic function appears normal without focal wall motion abnormalities. Diastolic parameters suggest a relaxation abnormality of the left ventricle, consistent with probable normal filling pressures. Right Ventricle: The right ventricle is normal in size and function. Atria: The left atrial size is normal. Right atrial size is normal. There is no Doppler evidence for an interatrial shunt. Mitral Valve: The mitral valve leaflets appear borderline thickened, but open well. There is mild mitral regurgitation. Aortic Valve: The aortic valve is trileaflet. The aortic valve opens well. There is no aortic valve stenosis. No aortic regurgitation is present. Tricuspid Valve: The tricuspid valve is normal in structure and function. There is mild tricuspid regurgitation. The right ventricular systolic pressure is estimated to be at least 35 mmHg based on an estimated right atrial pressure of 8 mm Hg. Pulmonic Valve: The pulmonic valve leaflets are thin and pliable; valve motion is normal. There is trace pulmonic regurgitation. Great Vessels: The aortic root is normal size. The dimensions of the ascending aorta are normal. The IVC is dilated (diameter is greater than 2.1 cm) yet it collapses greater than 50% with a sniff. This suggests a right atrial pressure of 8 mm Hg. Pericardium/ Pleura There is no pericardial effusion. There is no pleural effusion. MMode/2D Measurements & Calculations LVIDd: 4.7 cm LVOT diam: 2.0 cm LVIDs: 3.1 cm Ao root diam: 3.0 cm FS: 34.7 % asc Aorta Diam: 3.4 cm EPSS: 0.41 cm Ao Arch Diam (Prox Trans): 2.4 cm IVSd: 0.71 cm LVPWd: 0.71 cm LV rajan. diameter/BSA (cm/m^2): 2.6 LV sys. diameter/BSA (cm/m^2): 1.7 LA A2 area: 15.4 cm2 RA long axis: 5.4 cm LA A4 area: 18.4 cm2 RA area: 18.6 cm2 LA length (vol): 6.0 cm RA vol: 54.0 ml LA vol: 39.9 ml RA : 29.8 ml/m2 LA vol index: 22.0 ml/m2 IVC diam: 2.5 cm RVD1 (basal): 3.1 cm RVD2 (mid): 2.8 cm TAPSE: 2.3 cm Doppler Measurements & Calculations Ao V2 max: 112.3 cm/sec LVOT Max Jaskaran: 81.2 cm/sec Ao V2 mean: 84.1 cm/sec LV V1 max P.6 mmHg Ao max P.0 mmHg LV V1 VTI: 17.3 cm Ao mean P.0 mmHg PIYUSH(I,D): 2.2 cm2 Ao V2 VTI: 25.0 cm PIYUSH(V,D): 2.3 cm2 sev ratio: 0.69 PIYUSH indexed to BSA (cm^2/m^2): 1.2 MV E max jaskaran: 76.9 cm/sec TR max jaskaran: 260.6 cm/sec MV A max jaskaran: 88.6 cm/sec TR max P.2 mmHg MV E/A: 0.87 PA V2 max: 81.2 cm/sec Med Peak E' Jaskaran: 6.9 cm/sec PA V2 mean: 59.3 cm/sec E/E' med: 11.1 PA mean P.5 mmHg Lat Peak E' Jaskaran: 8.3 cm/sec PA pr(Accel): 22.5 mmHg E/E' lat: 9.3 E/e' average: 10.2 MV dec time: 0.20 sec SV(LVOT): 55.2 ml Reading Physician:12:11 PM
[2023-02-24 22:48] LABS: PTT Partial Thromboplastin Tim 85 SECONDS (26-36)
--- NOTE | 2023-02-24 22:48 | P.HP_ITS ---
History of Present Illness History of Present Illness Date Patient Seen: 02/24/23 Time Patient Seen: 22:48 Chief complaint: AFib RVR, pneumonia RT LL, myocardial injury, JEFF Narrative: Angela Morocho is a 67-year-old female with a past medical history of essential hypertension, HLD, proximal atrial fibrillation last occurred 5 years ago who presented to the ED with worsening cough and upper respiratory symptoms, palpitations in AFib and worsening global weakness. Patient developed URI symptoms approximately 02/20, went to the ED and was found to be in atrial fibrillation with RVR in another ED was given medications and was rate controlled and discharged. And last had an episode of atrial fibrillation with RVR 5 years ago, has been symptom-free since that time. In the emergency department shins atrial fibrillation heart rates 120s to 130s patient was given a loading dose of amiodarone 150 mg, patient subsequently cardioverted. Initial troponin 0.691, repeat 0.802. Dr. Root consulted with Dr. Tolentino [facility] who recommended the patient be placed on heparin drip and continue oral amiodarone 200 mg b.i.d. x7 days followed by 200 mg daily. On admit patient has continued wet sounding cough without sputum production, denies chest pain, palpitations, shortness in breath, headache, changes in vision, orthopnea, exertional dyspnea, difficulty swallowing, speech impairment, numbness, tingling, difficulty with ambulation, recent falls, head injury, LOC, fever, body aches, chills, recent exposure to illness, abdominal pain, nausea, vomiting, urinary incontinence/retention, dysuria, frequency, urgency, hematuria, bowel changes, constipation, incontinence, melena, rashes, recent changes to medication, injury, or trauma. On admit vitals 97.2, 120/75, 77, 23, 98% on room air. Patient does not have a white count WBC 4.4, H and H 16/47, K 4.3/Mag 2.0 are stable. 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 Lactate and urinalysis are WNL, mild AST elevation 39. Respiratory panel and MRSA are pending. Chest x-ray demonstrates patchy right basilar opacities suggestive of right lower lobe pneumonia. I personally reviewed EKG from ED atrial flutter 2:1, rate of [address] depression, leads V3-V6 without ST elevation. PT 14.1, INR normal 1.2, post heparin drip PTT 85. Patient admitted for paroxysmal atrial fibrillation with RVR, RT LL pneumonia, myocardial injury, and JEFF. [facility] Medical History (Updated 02/25/23 @ 00:12 by ATIF Matson) Essential hypertension Hyperlipidemia Paroxysmal atrial fibrillation Surgical History (Updated 02/25/23 @ 00:12 by ATIF Matson) History of tubal ligation Family History (Updated 02/25/23 @ 00:13 by TAMAR Matson-IMANI) Father Heart attack Mother Cancer Social History household members: spouse Smoking Status: Never smoker alcohol intake: former Meds Home Medications and Allergies Home Medications Medication Instructions Recorded Confirmed Type metoprolol succinate 25 mg 25 mg PO BID 01/26/22 01/29/22 History tablet,extended release 24 hr simvastatin 10 mg tablet 10 mg PO BEDTIME 01/26/22 01/29/22 History Allergies Allergy/AdvReac Type Severity Reaction Status Date / Time No Known Drug Allergies Allergy Verified 01/29/22 08:51 Review of Systems Review of Systems Narrative: All 12 point systems reviewed with the patient and are negative except otherwise documented. Exam Vital Signs (past 8 hours): - 02/24/23 18:24 02/24/23 18:38 02/24/23 19:00 Temperature 97.2 F L Pulse Rate 121 H 121 H Respiratory Rate 16 26 H Blood Pressure 132/76 108/74 Pulse Oximetry 97 98 Oxygen Delivery Method Room Air 02/24/23 19:00 02/24/23 19:30 02/24/23 19:30 Temperature Pulse Rate 123 H 119 H Respiratory Rate 23 Blood Pressure 139/86 Pulse Oximetry 96 97 Oxygen Delivery Method 02/24/23 20:00 02/24/23 20:00 02/24/23 20:30 Temperature Pulse Rate 120 H Respiratory Rate 26 H Blood Pressure 110/78 119/83 Pulse Oximetry 97 Oxygen Delivery Method 02/24/23 20:30 02/24/23 21:05 02/24/23 20:56 Temperature Pulse Rate 131 H 72 120 H Respiratory Rate 24 18 Blood Pressure Pulse Oximetry 96 96 98 Oxygen Delivery Method Room Air 02/24/23 20:56 02/24/23 21:00 02/24/23 21:01 Temperature Pulse Rate 123 H Respiratory Rate 28 H Blood Pressure 133/75 137/85 Pulse Oximetry 97 Oxygen Delivery Method 02/24/23 21:01 02/24/23 21:30 02/24/23 21:30 Temperature Pulse Rate 124 H 75 Respiratory Rate 23 23 Blood Pressure 123/79 Pulse Oximetry 97 97 Oxygen Delivery Method 02/24/23 22:00 02/24/23 22:00 Temperature Pulse Rate 77 Respiratory Rate Blood Pressure 120/75 Pulse Oximetry 98 Oxygen Delivery Method Oxygen Delivery Method Room Air Narrative Exam Narrative: General: Patient is a well-developed, well-nourished in no distress at this time. HEENT: Normocephalic, atraumatic, extraocular muscles intact, oral pharynx is clear and mucous membranes are moist. Neck is supple and symmetric, trachea is midline, no adenopathy, no thyroid enlargement, nontender, no masses palpated. Negative for JVD Chest: Normal AP diameter and contour without kyphoscoliosis, Equal chest rise without nasal flaring, retractions, tachypneic or labored breathing. Lungs: Wet cough present, Auscultation of all lung [place] are clear without adventitious sounds, wheezes, rhonchi, or rales. With the exception of RLL: Decreased, coarse, occasional expiratory wheezing. Cardio: regular rate and rhythm without murmur, rubs, or gallops, no carotid bruit, no cardiac pulsations present. Abdomen: Soft nontender, negative for organomegaly, or masses. Bowel sounds are present in all 4 quadrants without guarding or rebound, no CVA tenderness. Musculoskeletal: Muscle strength and tone are equal, no deformity, crepitus, effusions, cyanosis, clubbing or edema present. Full range of motion intact radial and pedal pulses are normal. Skin: Warm dry and intact without rashes, ulcerations or petechiae. Neuro: Alert and orientated x3, moves all extremities, sensation to touch intact, no gross deficits noted of cranial nerves. Psych: Patient has a well-kept appearance, appropriate affect, mental status attitude thought context and judgment are appropriate for age. Objective Labs 02/24/23 18:45 02/24/23 18:45 Labs: Laboratory Results - last 24 hr 02/24/23 02/24/23 02/24/23 18:45 18:45 18:45 WBC 4.4 L RBC 5.55 H Hgb 16.1 H Hct 47.6 H MCV 85.8 MCH 29.0 MCHC 33.8 RDW 13.9 Plt Count 199 Neut % (Auto) 33.4 L Lymph % (Auto) 44.4 H Cannon % (Auto) 18.0 H Eos % (Auto) 3.4 Baso % (Auto) 0.8 Neut # (Auto) 1500 Lymph # (Auto) 2000 Cannon # (Auto) 800 Eos # (Auto) 100 Baso # (Auto) 0 PT 14.1 H INR 1.2 APTT 43 H Sodium 136 L Potassium 4.3 Chloride 100 Carbon Dioxide 28 BUN 16 Creatinine 1.39 H Estimated GFR 42 L BUN/Creatinine Ratio 11.5 Glucose 122 H Lactate Calcium 9.4 Magnesium 2.0 Total Bilirubin 0.4 AST 39 H ALT 26 Alkaline Phosphatase 81 Total Creatine Kinase 104 CK-MB (CK-2) TNP CK-MB (CK-2) Rel Index TNP Troponin I 0.691 H* Total Protein 7.9 Albumin 4.1 Globulin 3.8 Albumin/Globulin Ratio 1.1 Lipase 58 Urine Color Urine Appearance Urine pH Ur Specific [place] Urine Protein Urine Glucose (UA) Urine Ketones Urine Occult Blood Urine Nitrate Urine Bilirubin Urine Urobilinogen Ur Leukocyte Esterase Urine RBC Urine WBC Ur Squamous Epith Cells Urine Bacteria Ur Culture Indicated? 02/24/23 02/24/23 02/24/23 18:45 20:38 20:51 WBC RBC Hgb Hct MCV MCH MCHC RDW Plt Count Neut % (Auto) Lymph % (Auto) Cannon % (Auto) Eos % (Auto) Baso % (Auto) Neut # (Auto) Lymph # (Auto) Cannon # (Auto) Eos # (Auto) Baso # (Auto) PT INR APTT Sodium Potassium Chloride Carbon Dioxide BUN Creatinine Estimated GFR BUN/Creatinine Ratio Glucose Lactate 1.5 Calcium Magnesium Total Bilirubin AST ALT Alkaline Phosphatase Total Creatine Kinase CK-MB (CK-2) CK-MB (CK-2) Rel Index Troponin I 0.802 H* Total Protein Albumin Globulin Albumin/Globulin Ratio Lipase Urine Color Yellow Urine Appearance Clear Urine pH 5.5 Ur Specific [place] <=1.005 Urine Protein Negative Urine Glucose (UA) Negative Urine Ketones Negative Urine Occult Blood 1+ H Urine Nitrate Negative Urine Bilirubin Negative Urine Urobilinogen 0.2 Ur Leukocyte Esterase Negative Urine RBC None seen Urine WBC None seen Ur Squamous Epith Cells None seen Urine Bacteria None seen Ur Culture Indicated? Cult not indicated Assessment & Plan Assessment & Plan narrative: Angela Morocho is a 67-year-old female with a past medical history of essential hypertension, HLD, proximal atrial fibrillation last occurred 5 years ago who presented to the ED with worsening cough and upper respiratory symptoms, palpitations in AFib and worsening global weakness. Patient admitted for paroxysmal atrial fibrillation with RVR, RT LL pneumonia, myocardial injury, and JEFF. Patient will require cardiac monitoring for atrial fibrillation with RVR reoccurrence, complete echo, heparin drip monitoring for elevated troponins- trend, pneumonia tx with IV antibiotics pending workup, and gentle rehydration to resolve JEFF. Paroxysmal atrial fibrillation with RVR, acute, present on admission * Initial heart rate 120-130, atrial flutter on EKG 2:1 * Heart Score: 6 * successfully cardioverted with amiodarone 150 mg in ED-patient has been on Pradaxa * [facility] consult Dr. Tolentino-recommended oral amiodarone 200 mg b.i.d. x7 days then change to 200 mg once daily * telemedicine * Holding Pradaxa and metoprolol * TSH/T4/lipids/BNP * Echo ordered Pneumonia, right lower lobe, acute, present on admission * Given azithromycin and Rocephin in ED * Chest x-ray demonstrates patchy right basilar opacities suggestive of right lower lobe pneumonia. * Ordered Rocephin for coverage of MRSA/and pneumococcal (due to recent flu-like illness symptoms) * Blood/sputum cultures pending, procalcitonin, CRP, MRSA swab * Respiratory consult as needed, incentive spirometry, guaifenesin, Tessalon Perles Myocardial injury, acute, as evidenced by troponin> 99th percentile, present on admission * Initial troponin 0.691, repeat 0.802-patient is asymptomatic/hemodynamically stable * [facility] consult Dr. Tolentino-recommended placing patient on heparin drip trend troponins * Heparin drip protocol- PTT per protocol, assess for bleeding on * Troponin q.6 hours JEFF, acute, present on admission * Creatinine 1.39, GFR 52 * Trend renal function and electrolytes * Gentle rehydration NS at 80 * Avoid nephrotoxic medications Hyperlipidemia, chronic, present on admission * Lipid panel ordered * Continue Lipitor in place of simvistatin Hypertension, essential, chronic, present on admission * 120/74 * Holding metoprolol receiving amiodarone 200 mg b.i.d. Malnutrition,moderate, acute on chronic, present on admission * BMI 21.7 * patient's malnutrition places them at high risk for medical and surgical complications in relation to acute illness/chronic illness. This increases the difficulty in complexity of medical management and increases the chances poor outcomes such as mortality and morbidity as well as impaired wound healing, and immune suppression. * dietary consult ordered to evaluate and implement steps to improve caloric intake and nutrition. Code status:full Surrogate decision maker: Spouse Trevor Morocho DVT/VTE prophylaxis: Heparin drip SCDs Disposition: Patient admitted for management of pneumonia, heparin for elevated troponins/myocardial injury, and resolution of JEFF. I have utilized all available immediate resources to obtain, update, or review the patient's current medications. I confirmed that the patient's advanced care plan is present, Code status is documented and/or surrogate decision maker is listed in the patient's medical record. I have personally reviewed patient's chart notes from PCP, specialists, diagnostic imaging, and laboratory results.
[2023-02-24 23:09] LABS: C-Reactive Protein Quant 0.6 mg/dL (<1.0)
[2023-02-24 23:17] LABS: Adenovirus Not Detected (Not Detect); B. parapertussis Not Detected (Not Detecte); Bordetella pertussis Not Detected (Not Detecte); Chlamydophila pneumoniae Not Detected (Not Detect); Coronavirus 229E Not Detected (Not Detect); Coronavirus HKU1 Not Detected (Not Detect); Coronavirus NL 63 Not Detected (Not Detect); Coronavirus OC43 Not Detected (Not Detect); Human Metapneumovirus Not Detected (Not Detect); Human Rhinovirus/Enterovirus Not Detected (Not Detect); Influenza A Not Detected (Not Detect); Influenza B Not Detected (Not Detect); Mycoplasma pneumoniae Not Detected (Not Detect); Parainfluenza Virus 1 Not Detected (Not Detect); Parainfluenza Virus 2 Not Detected (Not Detect); Parainfluenza Virus 3 Not Detected (Not Detect); Parainfluenza Virus 4 Not Detected (Not Detect); Respiratory Syncytial Virus Not Detected (Not Detect); SARS- CoV-2 Not Detected (Not Detecte)
--- NOTE | 2023-02-24 23:23 | PC.NURSE ---
2310: Called report to MOSHE Hamilton. Pt A&Ox4 on transfer to unit, denies new or concerning symptoms
[2023-02-24 23:24] LABS: NT-proBNP (BNP-Adult 18+) 2060 pg/mL (<125)
[2023-02-24 23:32] LABS: Procalcitonin 0.08 ng/mL (<0.5)
[2023-02-24 23:43] LABS: Thyroid Stimulating Hormone 2.99 uIU/mL (0.47-4.68)
[2023-02-24] MEDS: SODIUM CHLORIDE 0.9% 1,000 ML 80 ML IV (23:53)
[2023-02-25] MEDS: CODEINE/GUAIFENESIN LIQUID 5ML UDC 5 ML PO ×3 (00:52→16:06)
[2023-02-25] MEDS: BENZONATATE 100 MG CAPSULE PO ×3 (00:52→18:48)
--- NOTE | 2023-02-25 01:15 | PC.ADMIT ---
[address] [facility] Admission Note: The patient,Angela Morocho,67 y/o, was given written information regarding hospital policies, unit procedures and contact persons. Patient's smoking status: Never smoker. Vital Signs - 8 hr 02/24/23 18:24 02/24/23 18:38 02/24/23 19:00 Temperature 97.2 F L Pulse Rate 121 H 121 H Respiratory Rate 16 26 H Blood Pressure 132/76 108/74 Pulse Oximetry 97 98 Oxygen Delivery Method Room Air 02/24/23 19:00 02/24/23 19:30 02/24/23 19:30 Temperature Pulse Rate 123 H 119 H Respiratory Rate 23 Blood Pressure 139/86 Pulse Oximetry 96 97 Oxygen Delivery Method 02/24/23 20:00 02/24/23 20:00 02/24/23 20:30 Temperature Pulse Rate 120 H Respiratory Rate 26 H Blood Pressure 110/78 119/83 Pulse Oximetry 97 Oxygen Delivery Method 02/24/23 20:30 02/24/23 21:05 02/24/23 20:56 Temperature Pulse Rate 131 H 72 120 H Respiratory Rate 24 18 Blood Pressure Pulse Oximetry 96 96 98 Oxygen Delivery Method Room Air 02/24/23 20:56 02/24/23 21:00 02/24/23 21:01 Temperature Pulse Rate 123 H Respiratory Rate 28 H Blood Pressure 133/75 137/85 Pulse Oximetry 97 Oxygen Delivery Method 02/24/23 21:01 02/24/23 21:30 02/24/23 21:30 Temperature Pulse Rate 124 H 75 Respiratory Rate 23 23 Blood Pressure 123/79 Pulse Oximetry 97 97 Oxygen Delivery Method 02/24/23 22:00 02/24/23 22:00 02/24/23 22:30 Temperature Pulse Rate 77 79 Respiratory Rate 31 H Blood Pressure 120/75 120/74 Pulse Oximetry 98 Oxygen Delivery Method 02/24/23 23:00 02/24/23 23:00 02/24/23 23:40 Temperature 99.0 F Pulse Rate 88 82 Respiratory Rate 20 23 Blood Pressure 125/77 114/64 Pulse Oximetry 98 97 Oxygen Delivery Method 02/25/23 01:13 Temperature Pulse Rate Respiratory Rate Blood Pressure Pulse Oximetry Oxygen Delivery Method Room Air Patient admitted at 2340 from ER per stretcher. Is alert and oriented. Breath sounds coarse but CTA with RA sat of 97%. Has moist sounding cough which is currently non-productive; medicated with guaifenesin/codeine + tessalon. HRR w/telemetry reading of SR. Denies nausea. BT present and abdomen is soft. Denies dysuria, frequency or urgency. Able to turn self in bed. Up to BSC with SBA due to feeling generalized weakness but seemed steady on feet. Denies pain. Bilateral calf SCD's applied. Heparin infusing at 16ml/h. Fall risk score is moderate but verbalizes agreement to call for assistance when needing to get out of bed so alarm is not activated. Oriented to call light and bed controls.
[2023-02-25 02:57] LABS: Free T4, Direct Thyroxine 1.59 ng/dL (0.78-2.19)
[2023-02-25 03:14] LABS: MRSA (Nasal) PCR Not Detected (Not Detect)
[2023-02-25 04:00] VITALS: BP 110/58; PULSE 71; RESP 18; TEMP 36.6; O2SAT 100
[2023-02-25 04:28] LABS: Add Manual Diff / Slide Review NO; Basophils Absolute Auto 0 /uL (0-100); Basophils Percent Auto 0.7 % (0-2); Eosinophils Absolute Auto 200 /uL (0-450); Eosinophils Percent Auto 3.2 % (2-4); Hematocrit 38.7 % (36-46); Lymphocytes Absolute Auto 2400 /uL (1100-4500); Lymphocytes Percent Auto 42.8 % (25-40); Mean Corpuscular HGB Conc 33.5 % (30-36); Mean Corpuscular Hemoglobin 28.8 PG (26-34); Mean Corpuscular Volume 85.8 fL (80-100); Monocytes Absolute Auto 600 /uL (0-900); Monocytes Percent Auto 11.4 % (3-14); Neutrophils Absolute Auto 2400 /uL (1500-7000); Neutrophils Percent Auto 41.9 % (50-75); Platelet Count 167 X10^3/uL (150-400); Red Blood Cell Count 4.52 X10^6/uL (4.0-5.2); Red Cell Distribution Width 13.8 % (11.6-14.8); White Blood Cell Count 5.7 X10^3/uL (4.5-11.0)
[2023-02-25 04:35] LABS: BUN Creatinine Ratio 18.8 (6-22); Blood Urea Nitrogen 15 mg/dL (7-17); Carbon Dioxide 28 mmol/L (22-32); Chloride 105 mmol/L (98-107); Cholesterol 117 mg/dL (140-199); Estimated Glomerular Filt Rate > 60 mL/min (>60); Glucose 106 mg/dL (80-110); HDL Cholesterol 40 mg/dL (40-60); HEMOLYSIS 16 (0-50); LDL Cholesterol Calculated 60 mg/dL (<100); Magnesium 1.8 mg/dL (1.6-2.3); Potassium 4.3 mmol/L (3.4-5.1); Sodium 135 mmol/L (137-145); Triglycerides 83 mg/dL (35-150)
[2023-02-25 04:45] LABS: PTT Partial Thromboplastin Tim 120 SECONDS (26-36)
[2023-02-25 08:00] VITALS: BP 109/60; PULSE 70; RESP 17; TEMP 36.4; O2SAT 95
[2023-02-25] MEDS: AMIODARONE 200 MG TABLET PO ×2 (08:43→17:25)
--- NOTE | 2023-02-25 08:53 | OT.IPNOTE ---
Chart reviewed, pt with currently increasing troponin levels, .691, .802, and most recently 1.470. Will hold till troponin level starts to drop.
[2023-02-25 11:28] LABS: Troponin I 0.772 ng/mL (0.01-0.034)
[2023-02-25 11:56] LABS: PTT Partial Thromboplastin Tim 75 SECONDS (26-36)
[2023-02-25 12:00] VITALS: BP 118/59; PULSE 75; RESP 18; O2SAT 98
[2023-02-25] MEDS: SODIUM CHLORIDE 0.9% 1,000 ML 80 ML IV (12:12)
--- NOTE | 2023-02-25 12:36 | PT.IIE ---
Current Diagnoses Paroxysmal atrial fibrillation (02/24/23) Surgical History (Last Updated 02/25/23 @ 00:12 by ATIF Matson) History of tubal ligation Medical History (Last Reviewed 02/24/23 @ 23:00 by ATIF Matson) Essential hypertension Hyperlipidemia Paroxysmal atrial fibrillation Physical Therapy Inpatient Evaluation/Re-Eval M1 PT/OT-IP Prior Functional Status Start: 02/25/23 08:46 Freq: NEEDED Status: Active Protocol: Document 02/25/23 12:17 AW (Rec: 02/25/23 12:36 AW [id number]) Medical Review Prior Functional Status Medical History Reviewed Yes Communication WNL Mobility and Gait Independent. Pt is an active hiker and likes to ride her recumbent bike. Activities of Daily Living and IADL's Independent Social History Household Members spouse Living Arrangements House Number of Floors (Floors) Two Floors Number of Stairs To Enter/Railing? 3 PARISA with rails. Full flight up to bedroom level. Home Environment Standard Height Toilet,Tub/ Shower Employment Status Retired Additional Social History Comment Pt lives in [place] with her spouse. Both are retired. M2 PT-IP Current Condition Start: 02/25/23 08:46 Freq: NEEDED Status: Active Protocol: Document 02/25/23 12:17 AW (Rec: 02/25/23 12:36 AW [id number]) Physical Therapy Current Condition Current Condition Evaluation Date 02/25/23 Treatment Diagnosis RLL PNA; ND; generalized weakness Onset Date 02/23/23 M3 PT-IP Subjective Start: 02/25/23 08:46 Freq: NEEDED Status: Active Protocol: Document 02/25/23 12:17 AW (Rec: 02/25/23 12:36 AW [id number]) Subjective Physical Therapy Visit Type Type Initial Evaluation Visit Start Time 11:58 Visit Stop Time 12:17 Total Visit Minutes 19 Notes Pt's spouse was present. SPT was also present. Physical Therapy Visit Comments Patient Comments Pt is relieved to hear her labs have improved, has been doing breathing exercises to calm herself. Therapy Pain Assessment Pain When Pain Assessed During Mobility Pain Present Pain Present Denied Pain M4 PT-IP Mobility and Gait Start: 02/25/23 08:46 Freq: NEEDED Status: Active Protocol: Document 02/25/23 12:17 AW (Rec: 02/25/23 12:36 AW [id number]) PT-Bed Mobility Assessment Supine to Sit Supine to Sit Independent Scooting Scooting to Edge of Bed Independent PT-Transfer Assessment Sit to and From Stand Sit to and from Stand Independent Equipment Transfer Assistive Device None Transfers Transfer Destination Chair Transfer Technique Stand Step Pivot Transfer Ability Level of Assist Independent Comments Mobility Comments Pre-mobility VS - BP 119/52 HR 77 SpO2 97% on room air. Pt demonstrated all mobility without assist. She did endorse some generalized weakness but did not affect her mobility. Static balance was excellent with pt able to maintain tandem stance and single leg stance 10 seconds each. Dynamic balance was similarly good with pt scoring 11/12 on modified DGI - no further balance testing indicated. Pt completed all transfers and gait without AD fully independent. Post- mobility VS - BP 118/59 HR 79 SpO2 97% on room air. Gait Assessment Gait Gait Assistance Required: Independent Distance (Feet) 350 Assistive Devices Assistive Device None Orthotic/Prosthetic Devices or Brace: No Gait Deviations General Gait Pattern Within Normal Limits Comments Gait Comments Pt denied chest pain pain, SOB . Stair Climbing Assessment Evaluation Level of Assist On Stairs Independent Devices Stair Climbing Assistive Devices Left Railing Technique/Endurance Stair Climbing Direction Ascend and Descend Stair Climbing Technique Step Over Step Number of Steps Climbed 4 Query Text: Stair Climbing Set # Repetitions (reps) 1 PT-Balance Assessment Sitting Balance and Reactions Static Sitting Balance Ability Normal Dynamic Sitting Balance Ability Normal Standing Balance and Reactions Static Standing Balance Ability Normal Dynamic Standing Balance Ability Normal Balance Tests Single Limb Standing >10 seconds Romberg >10 seconds Tandem Standing >10 seconds Functional Assessments Functional Tests Dynamic Gait Index mDGI: 07/21 (1 pt deducted for vertical head turns) M5 PT-IP Objective Assessments Start: 02/25/23 08:46 Freq: NEEDED Status: Active Protocol: Document 02/25/23 12:17 (Rec: 02/25/23 12:32 [id number]) Orientation Orientation/Cognition Level of Alertness Alert Orientation Name,Situation Language Function Ability No Deficits Noted Safety Awareness Understands Safety Issues Memory Description No Deficits Noted Gross Range of Motion Upper Extremity ROM Assessment Within Functional Limits Lower Extremity ROM Assessment Within Functional Limits Strength Upper Extremity Strength Assessment Within Functional Limits Lower Extremity Strength Assessment Within Functional Limits Comments Strength Comments Bilateral LE: hip flex 5/5; knee ext 5/5; knee flex 5/5; DF 5/5; PF 5/5 functionally Pt presents no UE limitations. Coordination Assessment Gross Coordination Gross Coordination WNL Sensation Assessment Sensation Gross Sensation WNL M7 PT-IP Assessment and Plan Start: 02/25/23 08:46 Freq: NEEDED Status: Active Protocol: Document 02/25/23 12:17 AW (Rec: 02/25/23 12:36 AW [id number]) PT Summary Assessment and Plan Potential Rehabilitation Potential Excellent Status of Condition at Evaluation Evolving Summary Assessment Summary Angela is a 67 yo woman admitted with RLL pneumonia and ND. Troponin peaked at 1. 47 and then downtrended to 0. 772 before PT assessment. Pt is fully independent at baseline. She is an active hiker. CLOF: Pt was found resting in bed, happy to work with PT. VS were unremarkable pre and post mobility (see mobility notes). Pt was fully independent with all transfers and gait. Dynamic balance score of 11/12 on 4-Item DGI warranted no further assessment. No acute PT needs are identified. PT recommends discharge home once medically stable. Frequency of Treatment Frequency Of Treatment Discharge Recommendations To Nursing Amount of Assist Needed Independent Discharge Recommendations PT Discharge Recommendations Home Transportation Needs at Discharge Private Vehicle
--- NOTE | 2023-02-25 14:25 | OT.IPNOTE ---
OT eval and treat order received. Chart reviewed and discussed with P.T. Pt is at her baseline at this time per P.T. No OT needs. Will discharge the order.
--- NOTE | 2023-02-25 15:07 | CM.DANOTE ---
DCP: Patient is a 67yo F here for AFib RVR, pneumonia RT LL, myocardial injury, JEFF (H&P). PCP: MARY ANN Garcia Payer: [facility] MCR and self pay CORN GROWER reviewed EMR. From nursing staff, likely home with no needs from this staff. Patient has been seen by PT and OT. No identified needs at this time. CORN GROWER entered room and introduced self and role. Patient was resting in bed and appeared A/Ox4. Patient was accompanied by spouse/Trevor HANNA ([phone]). Patient reports she is independent with ADLs at baseline and drives. Patient and spouse live in [place] and are both retired. Patient reports she is feeling much better today and looks forward to going home when ready. Patient reported she has some questions with her insurance and billing. Patient claimed someone from billing was already planning on coming up to speak with them but wanted this author to double check that someone was coming. CORN GROWER gave patient phone number for patient accounts main line for further billing questions. Patient reports she has been very satisfied with her care here. CORN GROWER encouraged her to fill out the survey regarding her care that she will receive in a few weeks. Patient reports spouse can drive her home when she's medically ready to d/c. Plan: d/c home with spouse in POV when medically stable. No needs from this team identified at this time. CM team will continue to follow with needs. STERLING Canela Discharge Planning/Care Management CM Discharge Assessment Start: 02/25/23 14:13 Freq: Status: Active Protocol: Document 02/25/23 14:13 [email or web address] (Rec: 02/25/23 14:14 [id number]) Discharge Planning Assessment Assigned Music Worker STERLING [place] DPWHITNEY/Assigned Designee Name Trevor Morocho (spouse) Contact Information [phone] Advance Directives? Yes Advance Directives on File No History Provided By Patient,Family Member,Medical Record Prior Living Arrangements House Household Members spouse Type of transporation used prior to Drives own vehicle admit Independent with ADL's Yes Is patient alert and oriented? Yes Barriers to Discharge No Discharge Plan Home Transportation Arrangement spouse will transport home Whiteboard Updated in Patient Room with Yes name and ext. # of Music Worker Review Status In Process Next Review Type Continued Stay Review
--- NOTE | 2023-02-25 15:52 | PM.PN.1 ---
Subjective Subjective Interval history: 67 F admitted for afib with RVR, possible pneumonia vs heart failure. She is improved slightly today but continues to have cough. Echocardiogram is unremarkable. Being treated for NSTEMI but given TTE findings, no likely cath and downtrending trop will transition back to dabigatran this evening. BP a bit soft this morning, held a number of her home medications. Exam Vital Signs (past 8 hours): - 02/25/23 08:00 02/25/23 12:00 Temperature 97.6 F Pulse Rate 70 75 Respiratory Rate 17 18 Blood Pressure 109/60 118/59 L Pulse Oximetry 95 98 Oxygen Flow Rate 0 0 Oxygen Delivery Method Room Air Oxygen Flow Rate 0 Narrative Exam Narrative: General: Patient is a well-developed, well-nourished in no distress at this time. HEENT: Normocephalic, atraumatic, extraocular muscles intact, oral pharynx is clear and mucous membranes are moist. Neck is supple and symmetric, trachea is midline, no adenopathy, no thyroid enlargement, nontender, no masses palpated. Negative for JVD Chest: Normal AP diameter and contour without kyphoscoliosis, Equal chest rise without nasal flaring, retractions, tachypneic or labored breathing. Lungs: Wet cough present, Auscultation of all lung [place] are clear without adventitious sounds, wheezes, rhonchi, or rales. With the exception of RLL: Decreased, coarse, occasional expiratory wheezing. Cardio: regular rate and rhythm without murmur, rubs, or gallops, no carotid bruit, no cardiac pulsations present. Abdomen: Soft nontender, negative for organomegaly, or masses. Bowel sounds are present in all 4 quadrants without guarding or rebound, no CVA tenderness. Musculoskeletal: Muscle strength and tone are equal, no deformity, crepitus, effusions, cyanosis, clubbing or edema present. Full range of motion intact radial and pedal pulses are normal. Skin: Warm dry and intact without rashes, ulcerations or petechiae. Neuro: Alert and orientated x3, moves all extremities, sensation to touch intact, no gross deficits noted of cranial nerves. Psych: Patient has a well-kept appearance, appropriate affect, mental status attitude thought context and judgment are appropriate for age. Objective Labs 02/25/23 04:13 02/25/23 04:13 Labs: Laboratory Results - last 24 hr 02/24/23 02/24/23 02/24/23 18:45 18:45 18:45 WBC 4.4 L RBC 5.55 H Hgb 16.1 H Hct 47.6 H MCV 85.8 MCH 29.0 MCHC 33.8 RDW 13.9 Plt Count 199 Neut % (Auto) 33.4 L Lymph % (Auto) 44.4 H [place] % (Auto) 18.0 H Eos % (Auto) 3.4 Baso % (Auto) 0.8 Neut # (Auto) 1500 Lymph # (Auto) 2000 [place] # (Auto) 800 Eos # (Auto) 100 Baso # (Auto) 0 PT 14.1 H INR 1.2 APTT 43 H Sodium 136 L Potassium 4.3 Chloride 100 Carbon Dioxide 28 BUN 16 Creatinine 1.39 H Estimated GFR 42 L BUN/Creatinine Ratio 11.5 Glucose 122 H Lactate Calcium 9.4 Magnesium 2.0 Total Bilirubin 0.4 AST 39 H ALT 26 Alkaline Phosphatase 81 Total Creatine Kinase 104 CK-MB (CK-2) TNP CK-MB (CK-2) Rel Index TNP Troponin I 0.691 H* C-Reactive Protein NT-Pro-B Natriuret Pep Total Protein 7.9 Albumin 4.1 Globulin 3.8 Albumin/Globulin Ratio 1.1 Triglycerides Cholesterol LDL Cholesterol, Calc HDL Cholesterol Lipase 58 Procalcitonin TSH Free T4 Urine Color Urine Appearance Urine pH Ur Specific [place] Urine Protein Urine Glucose (UA) Urine Ketones Urine Occult Blood Urine Nitrate Urine Bilirubin Urine Urobilinogen Ur Leukocyte Esterase Urine RBC Urine WBC Ur Squamous Epith Cells Urine Bacteria Ur Culture Indicated? Nasal Screen MRSA (PCR) Chlamy pneumoniae PCR Adenovirus (PCR) B. pertussis DNA (PCR) B.parapertussis DNA PCR Coronavirus OC43 (PCR) Coronavirus HKU1 (PCR) Coronavirus 229E (PCR) SARS-CoV-2 (PCR) Coronavirus NL63 (PCR) Human Metapneumovir PCR Influenza Type A (PCR) Influenza Type B (PCR) M. pneumoniae (PCR) Parainfluenza 1 (PCR) Parainfluenza 2 (PCR) Parainfluenza 3 (PCR) Parainfluenza 4 (PCR) RSV (PCR) Entero/Rhino (PCR) 02/24/23 02/24/23 02/24/23 18:45 18:45 18:45 WBC RBC Hgb Hct MCV MCH MCHC RDW Plt Count Neut % (Auto) Lymph % (Auto) [place] % (Auto) Eos % (Auto) Baso % (Auto) Neut # (Auto) Lymph # (Auto) [place] # (Auto) Eos # (Auto) Baso # (Auto) PT INR APTT Sodium Potassium Chloride Carbon Dioxide BUN Creatinine Estimated GFR BUN/Creatinine Ratio Glucose Lactate 1.5 Calcium Magnesium Total Bilirubin AST ALT Alkaline Phosphatase Total Creatine Kinase CK-MB (CK-2) CK-MB (CK-2) Rel Index Troponin I C-Reactive Protein NT-Pro-B Natriuret Pep Total Protein Albumin Globulin Albumin/Globulin Ratio Triglycerides Cholesterol LDL Cholesterol, Calc HDL Cholesterol Lipase Procalcitonin 0.08 TSH 2.99 Free T4 1.59 Urine Color Urine Appearance Urine pH Ur Specific [place] Urine Protein Urine Glucose (UA) Urine Ketones Urine Occult Blood Urine Nitrate Urine Bilirubin Urine Urobilinogen Ur Leukocyte Esterase Urine RBC Urine WBC Ur Squamous Epith Cells Urine Bacteria Ur Culture Indicated? Nasal Screen MRSA (PCR) Chlamy pneumoniae PCR Adenovirus (PCR) B. pertussis DNA (PCR) B.parapertussis DNA PCR Coronavirus OC43 (PCR) Coronavirus HKU1 (PCR) Coronavirus 229E (PCR) SARS-CoV-2 (PCR) Coronavirus NL63 (PCR) Human Metapneumovir PCR Influenza Type A (PCR) Influenza Type B (PCR) M. pneumoniae (PCR) Parainfluenza 1 (PCR) Parainfluenza 2 (PCR) Parainfluenza 3 (PCR) Parainfluenza 4 (PCR) RSV (PCR) Entero/Rhino (PCR) 02/24/23 02/24/23 02/24/23 18:45 20:38 20:51 WBC RBC Hgb Hct MCV MCH MCHC RDW Plt Count Neut % (Auto) Lymph % (Auto) [place] % (Auto) Eos % (Auto) Baso % (Auto) Neut # (Auto) Lymph # (Auto) [place] # (Auto) Eos # (Auto) Baso # (Auto) PT INR APTT Sodium Potassium Chloride Carbon Dioxide BUN Creatinine Estimated GFR BUN/Creatinine Ratio Glucose Lactate Calcium Magnesium Total Bilirubin AST ALT Alkaline Phosphatase Total Creatine Kinase CK-MB (CK-2) CK-MB (CK-2) Rel Index Troponin I 0.802 H* C-Reactive Protein NT-Pro-B Natriuret Pep 2060 H Total Protein Albumin Globulin Albumin/Globulin Ratio Triglycerides Cholesterol LDL Cholesterol, Calc HDL Cholesterol Lipase Procalcitonin TSH Free T4 Urine Color Yellow Urine Appearance Clear Urine pH 5.5 Ur Specific [place] <=1.005 Urine Protein Negative Urine Glucose (UA) Negative Urine Ketones Negative Urine Occult Blood 1+ H Urine Nitrate Negative Urine Bilirubin Negative Urine Urobilinogen 0.2 Ur Leukocyte Esterase Negative Urine RBC None seen Urine WBC None seen Ur Squamous Epith Cells None seen Urine Bacteria None seen Ur Culture Indicated? Cult not indicated Nasal Screen MRSA (PCR) Chlamy pneumoniae PCR Adenovirus (PCR) B. pertussis DNA (PCR) B.parapertussis DNA PCR Coronavirus OC43 (PCR) Coronavirus HKU1 (PCR) Coronavirus 229E (PCR) SARS-CoV-2 (PCR) Coronavirus NL63 (PCR) Human Metapneumovir PCR Influenza Type A (PCR) Influenza Type B (PCR) M. pneumoniae (PCR) Parainfluenza 1 (PCR) Parainfluenza 2 (PCR) Parainfluenza 3 (PCR) Parainfluenza 4 (PCR) RSV (PCR) Entero/Rhino (PCR) 02/24/23 02/24/23 02/24/23 21:25 22:06 22:28 WBC RBC Hgb Hct MCV MCH MCHC RDW Plt Count Neut % (Auto) Lymph % (Auto) [place] % (Auto) Eos % (Auto) Baso % (Auto) Neut # (Auto) Lymph # (Auto) [place] # (Auto) Eos # (Auto) Baso # (Auto) PT INR APTT 85 H* D Sodium Potassium Chloride Carbon Dioxide BUN Creatinine Estimated GFR BUN/Creatinine Ratio Glucose Lactate Calcium Magnesium Total Bilirubin AST ALT Alkaline Phosphatase Total Creatine Kinase CK-MB (CK-2) CK-MB (CK-2) Rel Index Troponin I C-Reactive Protein 0.6 NT-Pro-B Natriuret Pep Total Protein Albumin Globulin Albumin/Globulin Ratio Triglycerides Cholesterol LDL Cholesterol, Calc HDL Cholesterol Lipase Procalcitonin TSH Free T4 Urine Color Urine Appearance Urine pH Ur Specific [place] Urine Protein Urine Glucose (UA) Urine Ketones Urine Occult Blood Urine Nitrate Urine Bilirubin Urine Urobilinogen Ur Leukocyte Esterase Urine RBC Urine WBC Ur Squamous Epith Cells Urine Bacteria Ur Culture Indicated? Nasal Screen MRSA (PCR) Chlamy pneumoniae PCR Not detected Adenovirus (PCR) Not detected B. pertussis DNA (PCR) Not detected B.parapertussis DNA PCR Not detected Coronavirus OC43 (PCR) Not detected Coronavirus HKU1 (PCR) Not detected Coronavirus 229E (PCR) Not detected SARS-CoV-2 (PCR) Not detected Coronavirus NL63 (PCR) Not detected Human Metapneumovir PCR Not detected Influenza Type A (PCR) Not detected Influenza Type B (PCR) Not detected M. pneumoniae (PCR) Not detected Parainfluenza 1 (PCR) Not detected Parainfluenza 2 (PCR) Not detected Parainfluenza 3 (PCR) Not detected Parainfluenza 4 (PCR) Not detected RSV (PCR) Not detected Entero/Rhino (PCR) Not detected 02/24/23 02/25/23 02/25/23 23:57 04:13 04:13 WBC 5.7 RBC 4.52 Hgb 13.0 Hct 38.7 MCV 85.8 MCH 28.8 MCHC 33.5 RDW 13.8 Plt Count 167 Neut % (Auto) 41.9 L Lymph % (Auto) 42.8 H [place] % (Auto) 11.4 Eos % (Auto) 3.2 Baso % (Auto) 0.7 Neut # (Auto) 2400 Lymph # (Auto) 2400 [place] # (Auto) 600 Eos # (Auto) 200 Baso # (Auto) 0 PT INR APTT 120 H* D Sodium Potassium Chloride Carbon Dioxide BUN Creatinine Estimated GFR BUN/Creatinine Ratio Glucose Lactate Calcium Magnesium Total Bilirubin AST ALT Alkaline Phosphatase Total Creatine Kinase CK-MB (CK-2) CK-MB (CK-2) Rel Index Troponin I C-Reactive Protein NT-Pro-B Natriuret Pep Total Protein Albumin Globulin Albumin/Globulin Ratio Triglycerides Cholesterol LDL Cholesterol, Calc HDL Cholesterol Lipase Procalcitonin TSH Free T4 Urine Color Urine Appearance Urine pH Ur Specific [place] Urine Protein Urine Glucose (UA) Urine Ketones Urine Occult Blood Urine Nitrate Urine Bilirubin Urine Urobilinogen Ur Leukocyte Esterase Urine RBC Urine WBC Ur Squamous Epith Cells Urine Bacteria Ur Culture Indicated? Nasal Screen MRSA (PCR) Not detected Chlamy pneumoniae PCR Adenovirus (PCR) B. pertussis DNA (PCR) B.parapertussis DNA PCR Coronavirus OC43 (PCR) Coronavirus HKU1 (PCR) Coronavirus 229E (PCR) SARS-CoV-2 (PCR) Coronavirus NL63 (PCR) Human Metapneumovir PCR Influenza Type A (PCR) Influenza Type B (PCR) M. pneumoniae (PCR) Parainfluenza 1 (PCR) Parainfluenza 2 (PCR) Parainfluenza 3 (PCR) Parainfluenza 4 (PCR) RSV (PCR) Entero/Rhino (PCR) 02/25/23 02/25/23 02/25/23 04:13 04:13 10:29 WBC RBC Hgb Hct MCV MCH MCHC RDW Plt Count Neut % (Auto) Lymph % (Auto) [place] % (Auto) Eos % (Auto) Baso % (Auto) Neut # (Auto) Lymph # (Auto) [place] # (Auto) Eos # (Auto) Baso # (Auto) PT INR APTT Sodium 135 L Potassium 4.3 Chloride 105 Carbon Dioxide 28 BUN 15 Creatinine 0.80 Estimated GFR > 60 BUN/Creatinine Ratio 18.8 Glucose 106 Lactate Calcium 8.0 L Magnesium 1.8 Total Bilirubin AST ALT Alkaline Phosphatase Total Creatine Kinase CK-MB (CK-2) CK-MB (CK-2) Rel Index Troponin I 1.470 H* 0.772 H* C-Reactive Protein NT-Pro-B Natriuret Pep Total Protein Albumin Globulin Albumin/Globulin Ratio Triglycerides 83 Cholesterol 117 L LDL Cholesterol, Calc 60 HDL Cholesterol 40 Lipase Procalcitonin TSH Free T4 Urine Color Urine Appearance Urine pH Ur Specific [place] Urine Protein Urine Glucose (UA) Urine Ketones Urine Occult Blood Urine Nitrate Urine Bilirubin Urine Urobilinogen Ur Leukocyte Esterase Urine RBC Urine WBC Ur Squamous Epith Cells Urine Bacteria Ur Culture Indicated? Nasal Screen MRSA (PCR) Chlamy pneumoniae PCR Adenovirus (PCR) B. pertussis DNA (PCR) B.parapertussis DNA PCR Coronavirus OC43 (PCR) Coronavirus HKU1 (PCR) Coronavirus 229E (PCR) SARS-CoV-2 (PCR) Coronavirus NL63 (PCR) Human Metapneumovir PCR Influenza Type A (PCR) Influenza Type B (PCR) M. pneumoniae (PCR) Parainfluenza 1 (PCR) Parainfluenza 2 (PCR) Parainfluenza 3 (PCR) Parainfluenza 4 (PCR) RSV (PCR) Entero/Rhino (PCR) 02/25/23 11:27 WBC RBC Hgb Hct MCV MCH MCHC RDW Plt Count Neut % (Auto) Lymph % (Auto) [place] % (Auto) Eos % (Auto) Baso % (Auto) Neut # (Auto) Lymph # (Auto) [place] # (Auto) Eos # (Auto) Baso # (Auto) PT INR APTT 75 H* D Sodium Potassium Chloride Carbon Dioxide BUN Creatinine Estimated GFR BUN/Creatinine Ratio Glucose Lactate Calcium Magnesium Total Bilirubin AST ALT Alkaline Phosphatase Total Creatine Kinase CK-MB (CK-2) CK-MB (CK-2) Rel Index Troponin I C-Reactive Protein NT-Pro-B Natriuret Pep Total Protein Albumin Globulin Albumin/Globulin Ratio Triglycerides Cholesterol LDL Cholesterol, Calc HDL Cholesterol Lipase Procalcitonin TSH Free T4 Urine Color Urine Appearance Urine pH Ur Specific [place] Urine Protein Urine Glucose (UA) Urine Ketones Urine Occult Blood Urine Nitrate Urine Bilirubin Urine Urobilinogen Ur Leukocyte Esterase Urine RBC Urine WBC Ur Squamous Epith Cells Urine Bacteria Ur Culture Indicated? Nasal Screen MRSA (PCR) Chlamy pneumoniae PCR Adenovirus (PCR) B. pertussis DNA (PCR) B.parapertussis DNA PCR Coronavirus OC43 (PCR) Coronavirus HKU1 (PCR) Coronavirus 229E (PCR) SARS-CoV-2 (PCR) Coronavirus NL63 (PCR) Human Metapneumovir PCR Influenza Type A (PCR) Influenza Type B (PCR) M. pneumoniae (PCR) Parainfluenza 1 (PCR) Parainfluenza 2 (PCR) Parainfluenza 3 (PCR) Parainfluenza 4 (PCR) RSV (PCR) Entero/Rhino (PCR) PFSH Medical History (Updated 02/25/23 @ 00:12 by ATIF Matson) Essential hypertension Hyperlipidemia Paroxysmal atrial fibrillation Surgical History (Updated 02/25/23 @ 00:12 by ATIF Matson) History of tubal ligation Family History (Updated 02/25/23 @ 00:13 by ATIF Matson) Father Heart attack Mother Cancer Social History household members: spouse Smoking Status: Never smoker alcohol intake: former Assessment & Plan Assessment & Plan narrative: Angela Morocho is a 67-year-old female with a past medical history of essential hypertension, HLD, proximal atrial fibrillation last occurred 5 years ago who presented to the ED with worsening cough and upper respiratory symptoms, palpitations in AFib and worsening global weakness. Patient admitted for paroxysmal atrial fibrillation with RVR, R LL ppossible pneumonia, possible NSTEMI, and JEFF Paroxysmal atrial fibrillation with RVR, acute, present on admission successfully cardioverted with amiodarone 150 mg in ED-patient has been on Pradaxa [facility] Cardiology consult Dr. Tolentino-recommended oral amiodarone 200 mg b.i.d. x7 days then change to 200 mg once daily continue telemetry continue pradaxa. TTE was unremarkable with normal EF and no focal wall motion abnormalities. Pneumonia, right lower lobe, acute, present on admission or possible diastolic heart failure Given azithromycin and Rocephin in ED Chest x-ray demonstrates patchy right basilar opacities suggestive of right lower lobe pneumonia. Ordered Rocephin for coverage of MRSA/and pneumococcal (due to recent flu-like illness symptoms) Blood/sputum cultures pending, procalcitonin, CRP, MRSA swab Respiratory consult as needed, incentive spirometry, guaifenesin, Tessalon Perles despite normal TTE, suspect some component of volume overload though BP is soft. If BP improves favor diuresis for improvement in symptoms which are predominantly cough. NSTEMI, acute, present on admission Initial troponin 0.691, repeat 0.802 rising to peak of 1.4.. Was recommended for heparin infusion by cardiology. Given improvement in symptoms today, along with echocardiogram showing no acute abnormalities will change from heparin infusion and resume home dabigtran this evening which should suffice for any possible therapy. recommend outpatient follow up with cardiology. continue dabigatran and simvastatin JEFF, acute, present on admission Creatinine 1.39, GFR 52 improved to 0.80 today. will stop fluids, possible diuresis as noted above. Hyperlipidemia, chronic, present on admission Lipid panel - LDL 60. Continue Lipitor in place of simvistatin Hypertension, essential, chronic, present on admission 120/74 on admit but slightly lower on HD#1 Holding metoprolol receiving amiodarone 200 mg b.i.d. Malnutrition,moderate, acute on chronic, present on admission BMI 21.7 patient's malnutrition places them at high risk for medical and surgical complications in relation to acute illness/chronic illness. This increases the difficulty in complexity of medical management and increases the chances poor outcomes such as mortality and morbidity as well as impaired wound healing, and immune suppression. dietary consult ordered to evaluate and implement steps to improve caloric intake and nutrition. Code status:full Surrogate decision maker: Spouse Trevor Morocho DVT/VTE prophylaxis: continue dabigatran Disposition: Patient admitted for management of pneumonia, heparin for elevated troponins/myocardial injury, and resolution of JEFF. I have utilized all available immediate resources to obtain, update, or review the patient's current medications. I confirmed that the patient's advanced care plan is present, Code status is documented and/or surrogate decision maker is listed in the patient's medical record. I have personally reviewed patient's chart notes from PCP, specialists, diagnostic imaging, and laboratory results.
[2023-02-25 16:00] VITALS: BP 116/60; PULSE 69; RESP 18; TEMP 36.4; O2SAT 96
[2023-02-25] MEDS: HYDROCORTISONE 1% CREAM 28 GM 1 APPLIC TOP (16:06)
[2023-02-25 16:54] LABS: PTT Partial Thromboplastin Tim 71 SECONDS (26-36)
[2023-02-25 18:29] LABS: Troponin I 0.719 ng/mL (0.01-0.034)
[2023-02-25] MEDS: BENZOCAINE/MENTHOL 1 LOZ PKT 1 EACH PO ×2 (19:10→21:58)
[2023-02-25] MEDS: FUROSEMIDE 20 MG/2 ML VIAL IV (19:11)
[2023-02-25 20:00] VITALS: BP 116/57; PULSE 79; RESP 18; TEMP 37.4; O2SAT 98
[2023-02-25] MEDS: DOXYCYCLINE HYCLATE 100 MG TABLET PO (20:49)
[2023-02-25] MEDS: DABIGATRAN 75 MG CAPSULE 150 MG PO (20:49)
[2023-02-25] MEDS: SODIUM CHLORIDE 0.9% FLUSH 10 ML IV (20:49)
[2023-02-25] MEDS: ATORVASTATIN 20 MG TABLET 10 MG PO (20:49)
[2023-02-25] MEDS: cefTRIAXone 1,000 MG in SODIUM CHLORIDE 0.9% 100 ML 200 MG IV (20:49)
[2023-02-25 22:32] LABS: PTT Partial Thromboplastin Tim 74 SECONDS (26-36)
[2023-02-25 22:49] LABS: Troponin I 0.721 ng/mL (0.01-0.034)
[2023-02-26] VITALS: BP 112/56; PULSE 66; RESP 17; TEMP 37.1; O2SAT 96
--- NOTE | 2023-02-26 01:01 | PC.NURSE ---
Patient is alert and oriented. Breath sounds CTA with RA sat of 98%. Continues to have moist sounding cough but states improvement after some diuresing from Lasix given at 1911. Does complain of sore throat from coughing so has been medicated with cepacol lozenge x2. HRR w/telemetry reading of ST, rate 103, earlier and was SR at last check. Denies nausea. BT present and is passing flatus. Having some urinary frequency at start of shift due to administration of Lasix. Denies pain. Refused SCD's tonight as getting up frequently to bathroom. Is independent with mobility which has been cleared by PT as safe. Fall risk score is moderate.
[2023-02-26] MEDS: BENZOCAINE/MENTHOL 1 LOZ PKT 1 EACH PO ×3 (03:40→11:27)
[2023-02-26] MEDS: CODEINE/GUAIFENESIN LIQUID 5ML UDC 5 ML PO ×2 (03:40→11:27)
[2023-02-26 04:00] VITALS: BP 104/50; PULSE 65; RESP 17; TEMP 37.1; O2SAT 93
[2023-02-26 04:52] LABS: Add Manual Diff / Slide Review NO; Basophils Absolute Auto 0 /uL (0-100); Basophils Percent Auto 0.8 % (0-2); Eosinophils Absolute Auto 300 /uL (0-450); Eosinophils Percent Auto 8.5 % (2-4); Hematocrit 37.5 % (36-46); Hemoglobin 12.6 g/dL (12.0-16.0); Lymphocytes Absolute Auto 1500 /uL (1100-4500); Lymphocytes Percent Auto 43.4 % (25-40); Mean Corpuscular HGB Conc 33.5 % (30-36); Mean Corpuscular Hemoglobin 28.6 PG (26-34); Mean Corpuscular Volume 85.1 fL (80-100); Monocytes Absolute Auto 500 /uL (0-900); Monocytes Percent Auto 13.5 % (3-14); Neutrophils Absolute Auto 1200 /uL (1500-7000); Neutrophils Percent Auto 33.8 % (50-75); Platelet Count 169 X10^3/uL (150-400); Red Cell Distribution Width 13.9 % (11.6-14.8); White Blood Cell Count 3.5 X10^3/uL (4.5-11.0)
[2023-02-26 04:59] LABS: Blood Urea Nitrogen 16 mg/dL (7-17); Calcium 8.7 mg/dL (8.4-10.2); Carbon Dioxide 30 mmol/L (22-32); Chloride 102 mmol/L (98-107); Estimated Glomerular Filt Rate > 60 mL/min (>60); Glucose 115 mg/dL (80-110); HEMOLYSIS < 15 (0-50); Magnesium 1.9 mg/dL (1.6-2.3); Potassium 3.8 mmol/L (3.4-5.1); Sodium 137 mmol/L (137-145)
[2023-02-26] MEDS: BENZONATATE 100 MG CAPSULE PO ×2 (05:52→11:27)
[2023-02-26] MEDS: AMIODARONE 200 MG TABLET PO (08:27)
[2023-02-26] MEDS: DABIGATRAN 75 MG CAPSULE 150 MG PO (08:55)
[2023-02-26] MEDS: ACETAMINOPHEN 325 MG TABLET 650 MG PO (08:55)
[2023-02-26] MEDS: DOXYCYCLINE HYCLATE 100 MG TABLET PO (08:55)
[2023-02-26 09:00] VITALS: BP 110/60; PULSE 67; RESP 17; TEMP 36.4; O2SAT 97
[2023-02-26] MEDS: SODIUM CHLORIDE 0.9% FLUSH 10 ML IV (09:04)
--- NOTE | 2023-02-26 10:53 | PM.DS.1 ---
History of Present Illness History of Present Illness Date Patient Seen: 02/26/23 Time Patient Seen: 10:53 Chief complaint: AFib RVR, pneumonia RT LL, myocardial injury, JEFF Narrative: Per admitting provider, Angela Morocho is a 67-year-old female with a past medical history of essential hypertension, HLD, proximal atrial fibrillation last occurred 5 years ago who presented to the ED with worsening cough and upper respiratory symptoms, palpitations in AFib and worsening global weakness. Patient developed URI symptoms approximately 02/20, went to the ED and was found to be in atrial fibrillation with RVR in another ED was given medications and was rate controlled and discharged. And last had an episode of atrial fibrillation with RVR 5 years ago, has been symptom-free since that time. In the emergency department shins atrial fibrillation heart rates 120s to 130s patient was given a loading dose of amiodarone 150 mg, patient subsequently cardioverted. Initial troponin 0.691, repeat 0.802. Dr. Root consulted with Dr. Tolentino [facility] who recommended the patient be placed on heparin drip and continue oral amiodarone 200 mg b.i.d. x7 days followed by 200 mg daily. On admit patient has continued wet sounding cough without sputum production, denies chest pain, palpitations, shortness in breath, headache, changes in vision, orthopnea, exertional dyspnea, difficulty swallowing, speech impairment, numbness, tingling, difficulty with ambulation, recent falls, head injury, LOC, fever, body aches, chills, recent exposure to illness, abdominal pain, nausea, vomiting, urinary incontinence/retention, dysuria, frequency, urgency, hematuria, bowel changes, constipation, incontinence, melena, rashes, recent changes to medication, injury, or trauma. On admit vitals 97.2, 120/75, 77, 23, 98% on room air. Patient does not have a white count WBC 4.4, H and H 16/47, K 4.3/Mag 2.0 are stable. JEFF although we have no labs for comparison MACHINE SKIVER 1.39, GFR 42. Lactate and urinalysis are WNL, mild AST elevation 39. Respiratory panel and MRSA are pending. Chest x-ray demonstrates patchy right basilar opacities suggestive of right lower lobe pneumonia. I personally reviewed EKG from ED atrial flutter 2:1, rate of [address] depression, leads V3-V6 without ST elevation. PT 14.1, INR normal 1.2, post heparin drip PTT 85. Patient admitted for paroxysmal atrial fibrillation with RVR, RT LL pneumonia, myocardial injury, and JEFF. Discharge Providers Provider Date of admission: 02/24/23 22:45 Discharge Date: 02/26/23 Primary care physician: Munir Hendricksno MD Consults: 02/24/23 22:45 Consult to Dietitian, Adult Routine Comment: Reason For Exam: BMI 21.7 Consult to Occupational Therapy Evaluate & Treat Comment: Physician Instructions: Evaluate and treat Consult to Physical Therapy Evaluate & Treat Comment: Physician Instructions: Evaluate and Treat 02/25/23 00:07 Consult to Pastoral Services Routine Comment: patient request Discharge provider: Hemanth Stacy DO Summary Hospital Course Discharge Diagnosis: Paroxysmal atrial fibrillation with RVR, acute, present on admission Pneumonia, right lower lobe, acute, present on admission or possible diastolic heart failure NSTEMI, acute, present on admission JEFF, acute, present on admission Hyperlipidemia, chronic, present on admission Hypertension, essential, chronic, present on admission Malnutrition,moderate, acute on chronic, present on admission Hospital Course: Angela Morocho is a 67-year-old female with a past medical history of essential hypertension, HLD, proximal atrial fibrillation last occurred 5 years ago who presented to the ED with worsening cough and upper respiratory symptoms, palpitations in AFib and worsening global weakness.? Patient admitted for paroxysmal atrial fibrillation with RVR, R LL ppossible pneumonia, NSTEMI, and JEFF. Patient was started on a heparin infusion initially for NSTEMI, with troponin peaking at 1.4. This may have been in the setting of demand, but given presentation she was treated as NSTEMI after discussion with cardiology initially. Once echocardiogram returned with no wall motion abnormalities and a normal EF, and had downtrending troponins heparin was discontinued and she was resumed on her home dabiagtran as no further evaluation for LHC was recommended at this time. For her pneumonia she was started on ceftriaxone and azithromycin with slow improvement. He creatinine improved with initial fluids. She was not diuresed. Blood pressures initially were low normal and her home metoprolol was held. Amiodarone had been given with improvement in her atrial fibrillation per cardiology recommendations. She will continue 200 mg BID for 1 week of amiodarone, followed by 100 mg daily. 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 After a couple of days, the patient continued to have mild cough and orthopnea, but felt well enough to discharge home. She was prescribed a diuretic for presumed volume overload based on her continuing symptoms including orthopnea. She was also discharged with another 4 days of augmentin for presumed bacterial pneumonia Time Spent with Patient Time spent: Greater than 30 minutes Exam Vital Signs (past 8 hours): - 02/26/23 04:00 02/26/23 04:00 02/26/23 09:00 Temperature 98.8 F 97.6 F Pulse Rate 65 67 Respiratory Rate 17 17 Blood Pressure 104/50 L 110/60 Pulse Oximetry 93 97 Oxygen Flow Rate 0 0 Oxygen Delivery Method Room Air Oxygen Flow Rate 0 Narrative Exam Narrative: General: Patient is a well-developed, well-nourished in no distress at this time. HEENT: Normocephalic, atraumatic, extraocular muscles intact, oral pharynx is clear and mucous membranes are moist. Neck is supple and symmetric, trachea is midline, no adenopathy, no thyroid enlargement, nontender, no masses palpated. Negative for JVD Chest: Normal AP diameter and contour without kyphoscoliosis, Equal chest rise without nasal flaring, retractions, tachypneic or labored breathing. Lungs: Wet cough present, Auscultation of all lung [place] are clear without adventitious sounds, wheezes, rhonchi, or rales. With the exception of RLL: Decreased, coarse, occasional expiratory wheezing. Cardio: regular rate and rhythm without murmur, rubs, or gallops, no carotid bruit, no cardiac pulsations present. Abdomen: Soft nontender, negative for organomegaly, or masses. Bowel sounds are present in all 4 quadrants without guarding or rebound, no CVA tenderness. Musculoskeletal: Muscle strength and tone are equal, no deformity, crepitus, effusions, cyanosis, clubbing or edema present. Full range of motion intact radial and pedal pulses are normal. Skin: Warm dry and intact without rashes, ulcerations or petechiae. Neuro: Alert and orientated x3, moves all extremities, sensation to touch intact, no gross deficits noted of cranial nerves. Psych: Patient has a well-kept appearance, appropriate affect, mental status attitude thought context and judgment are appropriate for age. Objective Labs 02/26/23 04:26 02/26/23 04:26 Labs: Laboratory Results - last 24 hr 02/25/23 02/25/23 02/25/23 10:29 11:27 16:23 WBC RBC Hgb Hct MCV MCH MCHC RDW Plt Count Neut % (Auto) Lymph % (Auto) Maury % (Auto) Eos % (Auto) Baso % (Auto) Neut # (Auto) Lymph # (Auto) Maury # (Auto) Eos # (Auto) Baso # (Auto) APTT 75 H* D 71 H Sodium Potassium Chloride Carbon Dioxide BUN Creatinine Estimated GFR BUN/Creatinine Ratio Glucose Calcium Magnesium Troponin I 0.772 H* 02/25/23 02/25/23 02/25/23 17:37 22:10 22:10 WBC RBC Hgb Hct MCV MCH MCHC RDW Plt Count Neut % (Auto) Lymph % (Auto) Maury % (Auto) Eos % (Auto) Baso % (Auto) Neut # (Auto) Lymph # (Auto) Maury # (Auto) Eos # (Auto) Baso # (Auto) APTT 74 H* Sodium Potassium Chloride Carbon Dioxide BUN Creatinine Estimated GFR BUN/Creatinine Ratio Glucose Calcium Magnesium Troponin I 0.719 H* 0.721 H* 02/26/23 02/26/23 04:26 04:26 WBC 3.5 L RBC 4.40 Hgb 12.6 Hct 37.5 MCV 85.1 MCH 28.6 MCHC 33.5 RDW 13.9 Plt Count 169 Neut % (Auto) 33.8 L Lymph % (Auto) 43.4 H Maury % (Auto) 13.5 Eos % (Auto) 8.5 H Baso % (Auto) 0.8 Neut # (Auto) 1200 L Lymph # (Auto) 1500 Maury # (Auto) 500 Eos # (Auto) 300 Baso # (Auto) 0 APTT Sodium 137 Potassium 3.8 Chloride 102 Carbon Dioxide 30 BUN 16 Creatinine 0.94 Estimated GFR > 60 BUN/Creatinine Ratio 17.0 Glucose 115 H Calcium 8.7 Magnesium 1.9 Troponin I [facility] Medical History (Updated 02/25/23 @ 00:12 by ATIF Matson) Essential hypertension Hyperlipidemia Paroxysmal atrial fibrillation Surgical History (Updated 02/25/23 @ 00:12 by ATIF Matson) History of tubal ligation Family History (Updated 02/25/23 @ 00:13 by ATIF Matson) Father Heart attack Mother Cancer Social History household members: spouse Smoking Status: Never smoker alcohol intake: former Discharge Plan Discharge Plan Patient Disposition: Home Provider Discharge Comment: You were admitted to the hospital with a possible pneumonia and rapid atrial fibrillation. You were treated for a minor heart attack, but it is likely your symptoms were related to your afib and pneumonia given the ultrasound of your heart appeared normal. Once you complete the 200 mg twice a day of amiodarone, then start the 100 mg daily dose as recommended by the cardiologists here. Metoprolol was discontinued due to low blood pressures, and given need for continued fluid removal furosemide was added. Medications may change depending on how you feel over the coming weeks. Discharge orders & Medications Prescriptions: New amiodarone 200 mg Tablet 200 mg PO BIDWM 5 Days Qty: 10 0RF furosemide 20 mg tablet 20 mg PO DAILY 30 Days Qty: 30 0RF amiodarone 100 mg tablet 100 mg PO DAILY 30 Days Qty: 30 0RF amoxicillin-pot clavulanate 875-125 mg tablet 1 tab PO BID 4 Days Qty: 8 0RF Continued azelastine 0.05 % Drops 1 drp OPHTHALMIC (EYE) DAILY PRN (Reason: Allergy Symptoms) benzonatate 100 mg Capsule 100 mg PO TID PRN (Reason: Cough) vitamin E 400 unit Tablet 400 unit PO DAILY codeine-guaifenesin 10-100 mg/5 mL Liquid 5 ml PO Q8H PRN (Reason: Cough) vitamin B complex Capsule 1 cap PO Q2D calcium 187.5 mg Capsule 1 mg PO white petrolatum-mineral oil 94-3 % Ointment EYE-BOTH BEDTIME coQ10 (ubiquinol) 200 mg Capsule 200 mg PO DAILY dabigatran etexilate [Pradaxa] 150 mg Capsule 150 mg PO BID krill oil 500 mg Capsule 500 mg PO DAILY vitamin K2 100 mcg Capsule 100 mcg PO DAILY potassium citrate 99 mg Capsule 99 mg PO DAILY ascorbic acid (vitamin C) 1,000 mg Capsule 1 g PO DAILY methylsulfonylmethane 1,000 mg/gram (scoop) Powder 1,000 mg PO DAILY lutein-zeaxanthin 20-4 mg Capsule 1 cap PO DAILY Rx Instructions: lutein/zeaxanthin 20mg-2mg simvastatin 10 mg Tablet 20 mg PO BEDTIME Discontinued metoprolol succinate 25 mg Tablet Extended Release 24 Hr 50 mg PO BID Follow up/Referrals: Yadira Saldana ARNP [Non-Staff] - 03/05/23 4:00 pm (Appt:03/05 @ 4:00 please arrive 15 minutes prior to scheduled appointment time @ [place] [phone] ) Diet/Activity/Treatments Diet: Diet as Tolerated Activity: As tolerated Visit Report/Discharge Packet Instructions: Pneumonia-Adult, DI for Atrial Fibrillation, Heparin Injection Stand Alone Forms: Patient Portal/API, Stroke Signs & Symptoms Discharge Data Primary Care Provider: Munir Hendrickson Discharges patient from system. Discharge Date/Time: 02/26/23 12:10
== END 2023-02-26 12:10 | disposition home or self-care (01) | DRG 280 ==
LOC: ED 22:13 → AC 22:45
PROVIDERS: Internal Medicine; Admitting Provider Nurse Practitioner Family; Emergency Provider Emergency Medicine; PCP Internal Medicine; Referring Provider Emergency Medicine; Visit Provider Nurse Practitioner Family
DX: I48.0 Paroxysmal atrial fibrillation (principal); J18.9 Pneumonia, unspecified organism; I21.4 Non-ST elevation (NSTEMI) myocardial infarction; N17.9 Acute kidney failure, unspecified; E44.0 Moderate protein-calorie malnutrition; I50.30 Unspecified diastolic (congestive) heart failure; E78.5 Hyperlipidemia, unspecified; I11.0 Hypertensive heart disease with heart failure; Z68.21 Body mass index [BMI] 21.0-21.9, adult; Z20.822 Contact with and (suspected) exposure to COVID-19
CPT/HCPCS: 36415; 71045; 80048; 80053; 80061; 81001; 81003; 82550; 83605; 83690; 83735; 83880; 84145; 84439; 84443; 84484; 85025; 85610; 85730; 86140; 87040; 87633; 87797; 93005; 93306; 96365; 96367; 96376; 97161; 99284; 99291; J0282; J0696; J1644; J1940

== ENCOUNTER → 2023-03-15 11:06 | Outpatient (CLI) | payer OTHER, SELFPAY ==
[2023-02-24 23:57] VITALS: BMI 21.8
--- NOTE | 2023-03-15 | DI.RAD.S_ITS ---
PROCEDURE: XR CHEST 2V INDICATIONS: Pneumonia, unspecified organism TECHNIQUE: 2 views of the chest were acquired. COMPARISON: [facility], CR, XR CHEST 1V, 02/24/2023, 18:48. FINDINGS: Surgical changes and devices: None. Lungs and pleura: Lungs are clear. No pleural effusions or pneumothorax. Mediastinum: Mediastinal contours are normal. Heart size is normal. Bones and chest wall: No suspicious bony abnormalities. Soft tissues appear unremarkable. IMPRESSION: No acute pulmonary process. Dictated by: Shawna Mao M.D. on 03/15/2023 at 12:55 Approved by: Shawna Mao M.D. on 03/15/2023 at 12:56
== END ==
PROVIDERS: PCP Registered Nurse; Referring Provider Registered Nurse; Visit Provider Registered Nurse
DX: J18.9 Pneumonia, unspecified organism (principal)
CPT/HCPCS: 71046

== ENCOUNTER → 2023-04-22 11:23 | Outpatient (CLI) | payer OTHER, SELFPAY ==
[2023-02-24 23:57] VITALS: BMI 21.8
--- NOTE | 2023-04-22 | DI.RAD.S_ITS ---
PROCEDURE: XR FOOT RT MIN 3V INDICATIONS: GROUND LEVEL FALL, RIGHT HEEL PAIN TECHNIQUE: 3 views of the foot were acquired. COMPARISON: None. FINDINGS: Bones: No fractures or dislocations. No suspicious bony lesions. Soft tissues: No tibiotalar joint effusion. Achilles tendon appears normal. IMPRESSION: Normal right foot radiographs Approved by: Rajiv Rich M.D. on 04/22/2023 at 15:58
== END ==
PROVIDERS: PCP Registered Nurse; Referring Provider Registered Nurse; Visit Provider Registered Nurse
DX: M79.671 Pain in right foot (principal)
CPT/HCPCS: 73630

== ENCOUNTER → 2024-03-30 09:00 | Outpatient (CLI) | payer OTHER, SELFPAY ==
[2023-02-24 23:57] VITALS: BMI 21.8
--- NOTE | 2024-03-30 09:01 | DI.MG.S_ITS ---
BILATERAL DIGITAL SCREENING MAMMOGRAM 3D/2D WITH CAD: 03/30/2024 CLINICAL: Routine screening. Family history of breast cancer. Comparison is made to exams dated: 03/25/2023 mammogram, 11/27/2021 mammogram, and 06/23/2020 mammogram - [facility]. Both breasts are extremely dense, which lowers the sensitivity of mammography (category d />75% glandular tissue). Current study was also evaluated with a Computer Aided Detection (CAD) system. No significant masses, calcifications, or other findings are seen in either breast. There has been no significant interval change. IMPRESSION: NEGATIVE There is no mammographic evidence of malignancy. A 1 year screening mammogram is recommended. Based on Tyrer-Cuzick model (a risk assessment model), the patient's lifetime risk is 24.2% and her 10 year risk is 12.7%. If a patient has an elevated risk, a more comprehensive evaluation should be considered and/or a referral to a genetic counselor. The [employer], [employer], and NCCN Guidelines advise the consideration of Breast MRI as an adjunct to screening mammography in patients whose Lifetime risk to develop breast cancer is 20% or higher. This exam was interpreted at Station ID: [id number]. NOTE: For mammograms, a report in lay terms will be sent to the patient. Approximately 15% of breast malignancies will not be visualized mammographically. In the management of a palpable breast mass, a negative mammogram must not discourage biopsy of a clinically suspicious lesion. Electronically Signed By: Tam tanner/arya:03/31/2024 09:21:25 letter sent: Normal Exam ACR BI-RADS Category 1: Negative [id number]
== END ==
PROVIDERS: PCP Registered Nurse; Referring Provider Registered Nurse; Visit Provider Registered Nurse
DX: Z12.31 Encounter for screening mammogram for malignant neoplasm of breast (principal); Z80.3 Family history of malignant neoplasm of breast; R92.343 Mammographic extreme density, bilateral breasts
CPT/HCPCS: 77063; 77067

== ENCOUNTER → 2024-08-17 08:22 | Outpatient (CLI) | payer OTHER, SELFPAY ==
[2023-02-24 23:57] VITALS: BMI 21.8
--- NOTE | 2024-08-17 08:23 | DI.RAD.S_ITS ---
PROCEDURE: XR SHOULDER RT MIN 2V INDICATIONS: RIGHT SHOULDER PAIN TECHNIQUE: 3 views of the shoulder were acquired. COMPARISON: None. FINDINGS: Bones: No fractures or dislocations. No suspicious bony lesions. Visualized ribs appear intact. Soft tissues: No suspicious soft tissue calcifications. IMPRESSION: No acute bony abnormality. Dictated by: Pilo North M.D. on 08/17/2024 at 8:55 Approved by: Pilo North M.D. on 08/17/2024 at 8:56
--- NOTE | 2024-08-17 08:23 | DI.RAD.S_ITS ---
PROCEDURE: XR CERVICAL SPINE 4V OR 5V INDICATIONS: RIGHT SHOULDER PAIN TECHNIQUE: 5 views of the cervical spine acquired. COMPARISON: None. FINDINGS: Bones: No fractures or dislocations to the T1 level. Oblique images demonstrate no bony foraminal stenoses. There is straightening of the cervical spine with loss of the normal cervical lordosis. There is complete disc height loss at C5-C6 and significant disc degeneration at C6-C7 with anterior osteophytes and loss of the disc height posteriorly. Soft tissues: No prevertebral soft tissue swelling. IMPRESSION: Moderate to severe degenerative disc disease centered on C5-C6 and C6-C7. Dictated by: Pilo North M.D. on 08/17/2024 at 8:57 Approved by: Pilo North M.D. on 08/17/2024 at 8:59
== END ==
PROVIDERS: PCP Registered Nurse; Referring Provider Physical Medicine & Rehabilitation; Visit Provider Physical Medicine & Rehabilitation
DX: M50.322 Other cervical disc degeneration at C5-C6 level (principal); M25.511 Pain in right shoulder
CPT/HCPCS: 72050; 73030

== ENCOUNTER → 2024-08-26 13:36 | Outpatient (CLI) | payer OTHER, SELFPAY ==
[2023-02-24 23:57] VITALS: BMI 21.8
--- NOTE | 2024-08-26 13:37 | DI.MRI.S_ITS ---
PROCEDURE: MR CERVICAL SPINE WO CON INDICATIONS: Cervical radiculopathy TECHNIQUE: Noncontrast sagittal T1 spin echo and T2 fast spin echo, sagittal STIR, foraminal oblique sagittal T2 fast spin echo, and axial gradient echo or T2 fast spin echo through the cervical spine. COMPARISON: None. FINDINGS: Image quality: Excellent. Alignment and Curvature: There is normal bony alignment. Bone Marrow: Marrow demonstrates normal overall signal. Spinal Cord: Visualized spinal cord has normal size and signal. No cerebellar tonsillar herniation. Paraspinous Soft Tissues: No paravertebral masses. Prevertebral soft tissues are normal in thickness. C2-C3: Normal appearance. C3-C4: Hypertrophic uncovertebral joint results in moderate left and mild right foraminal stenosis C4-C5: Hypertrophic arthropathy associated with moderate left and mild right foraminal stenosis. C5-C6: Hypertrophic arthropathy with partial ankylosis of the uncovertebral joints particularly on the right. Posterior disc osteophyte complex. Mild central stenosis. No foraminal stenosis. C6-C7: Posterior disc osteophyte complex results in mild central stenosis. Hypertrophic arthropathy. Moderate left right foraminal stenosis C7-T1: Normal appearance. IMPRESSION: Multilevel degenerative disc disease and arthropathy results in varying degrees of central and foraminal stenosis including moderate foraminal stenosis C4-5 and C6-7 Approved by: Rajiv Rich M.D. on 08/27/2024 at 15:37
== END ==
LOC: MRI 13:37
PROVIDERS: PCP Registered Nurse; Referring Provider Physical Medicine & Rehabilitation; Visit Provider Physical Medicine & Rehabilitation
DX: M50.123 Cervical disc disorder at C6-C7 level with radiculopathy (principal); M47.22 Other spondylosis with radiculopathy, cervical region; M48.02 Spinal stenosis, cervical region
CPT/HCPCS: 72141

== ENCOUNTER → 2025-03-31 10:33 | Outpatient (CLI) | payer OTHER, SELFPAY ==
[2024-08-31 11:24] VITALS: BMI 21.8
--- NOTE | 2025-03-31 10:36 | DI.MG.S_ITS ---
MM screening mammo BI: 03/31/2025. BI-RADS: 1 CLINICAL: 69-year old female for bilateral screening mammogram. Tyrer-Cuzick lifetime risk of 15.6%. Current reported family history of breast cancer: mother. PRIOR EXAMS 03/30/2024, 03/25/2023, 11/27/2021, 06/23/2020. MAMMOGRAPHY TECHNIQUE: 2D and 3D (tomosynthesis) digital mammographic views obtained, with additional images as needed for full coverage. Current study was also evaluated with a Computer Aided Detection (CAD) system. DENSITY D. The breasts are extremely dense, which lowers the sensitivity of mammography. MAMMOGRAPHY FINDINGS Bilateral: No suspicious mass, asymmetry, microcalcification, or other abnormality seen. IMPRESSION: * No evidence of malignancy. RECOMMENDATIONS Bilateral * Annual screening mammography. OVERALL ASSESSMENT CATEGORY BI-RADS-1: Negative. The [employer] recommends annual screening mammography beginning at age 40 for women with average risk of breast cancer. ELECTRONICALLY SIGNED: Vikas Rogel M.D. on 03/31/2025 at 08:12:42 PM PT Interpreting Station ID: [id number]
== END ==
PROVIDERS: PCP Registered Nurse; Referring Provider Registered Nurse; Visit Provider Registered Nurse
DX: Z12.31 Encounter for screening mammogram for malignant neoplasm of breast (principal); Z80.3 Family history of malignant neoplasm of breast; R92.343 Mammographic extreme density, bilateral breasts
CPT/HCPCS: 77063; 77067

== ENCOUNTER → 2025-06-14 12:05 | Outpatient (CLI) | payer OTHER, SELFPAY ==
[2024-08-31 11:24] VITALS: BMI 21.8
--- NOTE | 2025-06-14 | DI.RAD.S_ITS ---
PROCEDURE: XR CHEST 2V INDICATIONS: CHRONIC COUGH TECHNIQUE: 2 views of the chest were acquired. COMPARISON: [facility], CR, XR CHEST 2V, 03/15/2023, 11:03. FINDINGS: Heart, mediastinum and pulmonary vascular: Heart is accentuated by pectus excavatum in within normal limits. No change. Mediastinum is unremarkable. Pulmonary vascular is normal. Lungs: Clear Pleural spaces: Normal-no effusions or pneumothorax. Bones and soft tissues: Normal IMPRESSION: No acute cardiopulmonary disease. Stable Dictated by: Vel Hoover M.D. on 06/15/2025 at 9:55 Approved by: Vel Hoover M.D. on 06/15/2025 at 9:55
== END ==
PROVIDERS: PCP Registered Nurse; Referring Provider Registered Nurse; Visit Provider Registered Nurse
DX: R05.3 Chronic cough (principal); R76.89 Other specified abnormal immunological findings in serum
CPT/HCPCS: 71046

== ENCOUNTER → 2025-06-22 09:28 | Outpatient (CLI) | payer OTHER, SELFPAY ==
[2024-08-31 11:24] VITALS: BMI 21.8
== END ==
LOC: RESP 09:28
PROVIDERS: PCP Registered Nurse; Referring Provider Registered Nurse; Visit Provider Registered Nurse
DX: R05.3 Chronic cough (principal); R94.2 Abnormal results of pulmonary function studies
CPT/HCPCS: 94060; 94726; 94729